=== PATIENT | female | born 1970 | race Caucasian/White ===

== ENCOUNTER 2017-03-30 19:37 | Inpatient (IN) | payer OTHER ==
[2017-03-30 20:35] VITALS: BMI 32.4
--- NOTE | 2017-03-30 21:16 | HP ---
CIWA Score - CIWA Score Nausea/Vomitin Muscle Tremors: 3 Anxiety: 3 Agitation: 3 Paroxysmal Sweats: 2 Orientation: 1-Uncertain about Date Tacttile Disturbances: 1-Very Mild Itch/Numbness Auditory Disturbances: 1-Very Mild Visual Disturbances: 0-None Headache: 0-None Present CIWA-Ar Total Score: 17 Admission [facility] - HPI Chief Complaint: WITHDRAWAL SYMPTOMS Allergies/Adverse Reactions: Allergies Allergy/AdvReac Type Severity Reaction Status Date / Time No Known Allergies Allergy Verified 03/30/17 21:14 History of Present Illness: 46 y.o. woman with a 6 year history of alcohol dependence is here seeking detox for the first time. She has attempted to detox herself from alcohol but reports she does not have a significant period of sobriety. Exam Limitations: Intoxication, Language Barrier - Ebola screening Have you traveled outside of the country in the last 21 days: No (N) Have you had contact with anyone from an Ebola affected area: No Have you been sick,other than usual withdrawal symptoms: No Do you have a fever: No - Review of Systems Constitutional: Chills, Diaphoresis, Loss of Appetite, Night Sweats, Changes in sleep, Unintentional Wgt. Loss EENT: reports: Blurred Vision, Tearing, Nose Congestion Respiratory: reports: No Symptoms reported Cardiac: reports: No Symptoms Reported GI: reports: Diarrhea, Abdominal cramping : reports: No Symptoms Reported Musculoskeletal: reports: No Symptoms Reported Integumentary: reports: No Symptoms Reported Endocrine: reports: No Symptoms Reported Hematology: reports: Anemia Psychiatric: reports: Mood/Affect Appropiate, Depressed Other Systems: Reviewed and Negative Patient History - Patient Medical History Hx Anemia: Yes Hx Asthma: No Hx Chronic Obstructive Pulmonary Disease (COPD): No Hx Cancer: No Hx Cardiac Disorders: No Hx Congestive Heart Failure: No Hx Hypertension: No Hx Hypercholesterolemia: No Hx Pacemaker: No HX Cerebrovascular Accident: No Hx Seizures: No Hx Dementia: No Hx Diabetes: No Hx Gastrointestinal Disorders: No Hx Liver Disease: No Hx Genitourinary Disorders: No Hx Sexually Transmitted Disorders: No Hx Renal Disease (ESRD): No Hx Thyroid Disease: No Hx Human Immunodeficiency Virus (HIV): No Hx Hepatitis C: No Hx Depression: Yes Hx Suicide Attempt: No Hx Bipolar Disorder: No Hx Schizophrenia: No - Patient Surgical History Past Surgical History: No - PPD History Previous Implant?: Yes Documented Results: Negative w/o proof PPD to be Administered?: Yes - Reproductive History Patient is a Female of Child Bearing Age (11 -55 yrs old): Yes Last Menstrual Period: 03/09/17 Patient : No - Smoking Cessation Smoking history: Former smoker Have you smoked in the past 12 months: No Initiated information on smoking cessation: Yes 'Breaking Loose' booklet given: 03/30/17 - Substance & Tx. History Hx Alcohol Use: Yes Hx Substance Use: No Substance Use Type: Alcohol Hx Substance Use Treatment: No (Denies any admission to rehab or detox ever ) - Substances Abused Alcohol Route: Oral Frequency: Daily Amount used: 2 pints of liquor Age of first use: 14 Date of Last Use: 03/30/17 Family Disease History - Family Disease History Family Disease History: Heart Disease: Father (ETOH DEPENDENCE ), Other: Father Admission Physical Exam [facility] - Vital Signs Vital Signs: Vital Signs - 24 hr 03/30/17 20:32 Temperature 98.3 F Pulse Rate 115 H Respiratory 18 Rate Blood Pressure 144/81 - Physical General Appearance: Yes: Alcohol on Breath, Intoxicated, Irritable, Anxious HEENTM: Yes: Hearing grossly Normal, Normal ENT Inspection, Normocephalic, Normal Voice, Pharynx Normal, Tm's normal Respiratory: Yes: Chest Non-Tender, Lungs Clear, Normal Breath Sounds, No Respiratory Distress, No Accessory Muscle Use Neck: Yes: No masses,lesions,Nodules, Trachea in good position Breast: Yes: Breast Exam Deferred Cardiology: Yes: Regular Rhythm, Tachycardia Abdominal: Yes: Flat, Soft Genitourinary: Yes: Other (No complaints reported) Back: Yes: Normal Inspection Extremities: Yes: Normal Inspection, Normal Range of Motion, Non-Tender Neurological: Yes: Alert, Motor Strength 5/5, Normal Mood/Affect, Normal Response Integumentary: Yes: Normal Color, Dry, Warm Lymphatic: Yes: Within Normal Limits - Diagnostic (1) Alcohol dependence with uncomplicated withdrawal Current Visit: Yes Status: Chronic (2) Iron deficiency anemia Current Visit: Yes Status: Chronic (3) Osteoarthritis Current Visit: Yes Status: Chronic Cleared for Admission [facility] - Detox or Rehab [facility] Level of Care: Medically Managed Detox Regimen/Protocol: Librium [facility] Breath Alcohol Content Breath Alcohol Content: 0.381 Urine Pregancy Test - Result Urine Test Results: Negative- NO Line Present Urine Drug Screen - Results Drug Screen Negative: Yes
[2017-03-30] MEDS ORDERED: P-EPHED 60MG/TRIPROLIDI 2.5MG TABLET PO PRN (21:25)
[2017-03-30] MEDS ORDERED: MAG HYDROX/AL HYDROX/SIMETH 30 ML UNIT-DOSE CUP PO PRN (21:25)
[2017-03-30] MEDS ORDERED: MAGNESIUM HYDROX 2400MG/30ML ORAL SUSPENSION 30 ML CUP PO PRN (21:25)
[2017-03-30] MEDS ORDERED: chlordiazePOXIDE HCL 25 MG CAPSULE PO ONE (21:25)
[2017-03-30] MEDS ORDERED: ACETAMINOPHEN 325 MG TABLET (FP) PO PRN (21:25)
[2017-03-30] MEDS ORDERED: MAGNESIUM CITRATE 300 ML BOTTLE PO PRN (21:25)
[2017-03-30] MEDS ORDERED: LOPERAMIDE HCL 2 MG CAPSULE PO PRN (21:25)
[2017-03-30] MEDS ORDERED: MENTHOL/PHENOL 1 EACH UD MM PRN (21:25)
[2017-03-30] MEDS ORDERED: guaiFENesin/D-METHORPHAN HB 10 ML UNIT-DOSE CUPS PO PRN (21:25)
[2017-03-30] MEDS: chlordiazePOXIDE HCL 25 MG CAPSULE PO SCH (22:25)
[2017-03-30] MEDS: THIAMINE HCL 100 MG TABLET (FP) PO SCH (22:26)
[2017-03-30 23:36] LABS: URINE APPEARANCE CLEAR; URINE BILIRUBIN NEGATIVE (NEGATIVE); URINE BLOOD 1+ (NEGATIVE); URINE COLOR YELLOW; URINE GLUCOSE (UA) NEGATIVE (NEGATIVE); URINE KETONE 2+ (NEGATIVE); URINE LEUK ESTERASE NEGATIVE (NEGATIVE); URINE NITRITE NEGATIVE (NEGATIVE)
[2017-03-30 23:37] LABS: URINE PROTEIN 2+ (NEGATIVE)
[2017-03-31 00:59] LABS: URINE MUCUS MANY; URINE RBC 1 /hpf (0-3); URINE WBC 3 /hpf (3-5)
[2017-03-31] MEDS: chlordiazePOXIDE HCL 25 MG CAPSULE PO PRN ×2 (03:42→12:54)
[2017-03-31] MEDS: chlordiazePOXIDE HCL 25 MG CAPSULE PO SCH ×4 (05:48→22:06)
--- NOTE | 2017-03-31 09:36 | PN ---
S CIWA - CIWA Score Nausea/Vomitin Muscle Tremors: 3 Anxiety: 3 Agitation: 3 Paroxysmal Sweats: 1-Minimal Palms Moist Orientation: 0-Oriented Tacttile Disturbances: 1-Very Mild Itch/Numbness Auditory Disturbances: 1-Very Mild Visual Disturbances: 1-Very Mild Sensitivity Headache: 2-Mild CIWA-Ar Total Score: 18 BHS Progress Note (SOAP) Subjective: alert,irritable,anxious,interrupted sleep,tremor Objective: 03/31/17 09:34 Vital Signs Temperature 98.2 F 03/31/17 06:22 Pulse Rate 106 H 03/31/17 06:30 Respiratory Rate 18 03/31/17 06:30 Blood Pressure 133/72 03/31/17 06:22 O2 Sat by Pulse Oximetry (%) ekg nsr,prolong qt Laboratory Last Values Urine Color Yellow 03/30/17 21:32 Urine Appearance Clear 03/30/17 21:32 Urine pH 6.0 (5.0-8.0) 03/30/17 21:32 Urine Protein 2+ (NEGATIVE) H 03/30/17 21:32 Urine Glucose (UA) Negative (NEGATIVE) 03/30/17 21:32 Urine Ketones 2+ (NEGATIVE) H 03/30/17 21:32 Urine Blood 1+ (NEGATIVE) H 03/30/17 21:32 Urine Nitrite Negative (NEGATIVE) 03/30/17 21:32 Urine Bilirubin Negative (NEGATIVE) 03/30/17 21:32 Urine Urobilinogen 2.0 mg/dL (0.2-1.0) H 03/30/17 21:32 Ur Leukocyte Esterase Negative (NEGATIVE) 03/30/17 21:32 Urine RBC 1 /hpf (0-3) 03/30/17 21:32 Urine WBC 3 /hpf (3-5) 03/30/17 21:32 Ur Epithelial Cells Moderate /hpf (FEW) 03/30/17 21:32 Urine Mucus Many 03/30/17 21:32 labs pending Assessment: 03/31/17 09:35 withdrawal symptom Plan: continue detox
--- NOTE | 2017-03-31 10:08 | CONSULT ---
[facility] Psychiatric Consult - Data Date of interview: 03/31/17 Admission source: [facility] Identifying data: This is 46 years old [place] leone[place] speaking female with no psychiatric hospitalization history intoxicated with: \Alcohol Substance Abuse History: - Smoking Cessation. Smoking history: Former smoker. Have you smoked in the past 12 months: No. Initiated information on smoking cessation: Yes. 'Breaking Loose' booklet given: 03/30/17. - Substance & Tx. History. Hx Alcohol Use: Yes. Hx Substance Use: No. Substance Use Type: Alcohol. Hx Substance Use Treatment: No (Denies any admission to rehab or detox ever ). - Substances Abused. Alcohol. Route: Oral. Frequency: Daily. Amount used: 2 pints of liquor. Age of first use: 14. Date of Last Use : 03/30/17 Medical History: Osteoarthritis, Anemia history Psychiatric History: Denies past psychiatric history Physical/Sexual Abuse/Trauma History: Denies, unclear Additional Comment: Observation. DFetox Unit Care Protocol Mental Status Exam - Mental Status Exam Alert and Oriented to: Person Cognitive Function: Fair Patient Appearance: Unkempt Mood: Sad Affect: Flat Patient Behavior: Sedated Speech Pattern: Delayed Voice Loudness: Mildly Soft/Quiet Thought Process: Circumstantial Thought Disorder: Being Controlled Hallucinations: Denies Suicidal Ideation: Denies Homicidal Ideation: Denies Insight/Judgement: Fair Sleep: Difficulty falling asleep Appetite: Weight gain Muscle strength/Tone: Mild Hypotonicity Gait/Station: Shuffling Additional Comments: Observation. 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 DFetox Unit Care Protocol
[2017-03-31] MEDS: PRENATAL VITAMINS W/ FOLIC ACID TABLET (FP) PO SCH (10:12)
[2017-03-31 10:16] LABS: ALBUMIN 3.7 g/dl (3.4-5.0); ALK PHOS 78 U/L (45-117); ANION GAP 15 (8-16); BILIRUBIN,TOTAL 0.7 mg/dL (0.2-1.0); CALCIUM 8.4 mg/dL (8.5-10.1); CO2 24 mmol/L (21-32); CREATININE 0.3 mg/dL (0.55-1.02); GLUCOSE,RANDOM 82 mg/dL (74-106); SGOT/AST 50 U/L (15-37); SGPT/ALT 45 U/L (12-78); TOT PROT 7.6 g/dl (6.4-8.2)
[2017-03-31 10:20] LABS: MCH 25.3 pg (25.7-33.7); MEAN CELL VOLUME 76.5 fl (80-96); MEAN PLT VOLUME 8.8 fl (7.5-11.1); PLATELET COUNT 187 K/MM3 (134-434); RDW 17.5 % (11.6-15.6); WHITE BLOOD COUNT 3.8 K/mm3 (4.0-10.0)
--- NOTE | 2017-03-31 12:56 | EKG ---
Test Reason : Blood Pressure : / mmHG Vent. Rate : 098 BPM Atrial Rate : 098 BPM P-R Int : 130 ms QRS Dur : 100 ms QT Int : 378 ms P-R-T Axes : 064 021 -22 degrees QTc Int : 482 ms NORMAL SINUS RHYTHM T WAVE ABNORMALITY, CONSIDER INFERIOR ISCHEMIA PROLONGED QT ABNORMAL ECG WHEN COMPARED WITH ECG OF 30-MAR-2017 22:08, NO SIGNIFICANT CHANGE WAS FOUND Confirmed by STEVE MORRISON, EMMA ([id number]) on 03/31/2017 12:55:49 PM Referred By: Confirmed By:EMMA WILSON MD
--- NOTE | 2017-03-31 12:59 | EKG ---
Test Reason : Blood Pressure : / mmHG Vent. Rate : 094 BPM Atrial Rate : 094 BPM P-R Int : 112 ms QRS Dur : 106 ms QT Int : 412 ms P-R-T Axes : 039 019 -26 degrees QTc Int : 515 ms NORMAL SINUS RHYTHM PROLONGED QT ABNORMAL ECG NO PREVIOUS ECGS AVAILABLE Confirmed by STEVE MORRISON, EMMA ([id number]) on 03/31/2017 12:58:53 PM Referred By: Confirmed By:EMMA WILSON MD
[2017-03-31] MEDS: diphenhydrAMINE HCL 50 MG CAPSULE PO PRN (22:06)
[2017-03-31] MEDS: THIAMINE HCL 100 MG TABLET (FP) PO SCH (22:06)
[2017-04-01] MEDS: chlordiazePOXIDE HCL 25 MG CAPSULE PO SCH ×3 (05:47→18:27)
--- NOTE | 2017-04-01 09:42 | PN ---
[facility] CIWA - CIWA Score Nausea/Vomitin Muscle Tremors: 3 Anxiety: 3 Agitation: 2 Paroxysmal Sweats: 1-Minimal Palms Moist Orientation: 0-Oriented Tacttile Disturbances: 1-Very Mild Itch/Numbness Auditory Disturbances: 1-Very Mild Visual Disturbances: 1-Very Mild Sensitivity Headache: 2-Mild CIWA-Ar Total Score: 17 BHS Progress Note (SOAP) Subjective: ALERT,IRRITABLE,ANXIOUS,INTERRUPTED SLEEP,TREMOR Objective: 04/01/17 09:40 Vital Signs Temperature 98.1 F 04/01/17 09:22 Pulse Rate 92 H 04/01/17 09:22 Respiratory Rate 16 04/01/17 09:22 Blood Pressure 120/74 04/01/17 09:22 O2 Sat by Pulse Oximetry (%) Laboratory Last Values WBC 3.8 K/mm3 (4.0-10.0) L 03/31/17 06:30 RBC 4.34 M/mm3 (3.60-5.2) 03/31/17 06:30 Hgb 11.0 GM/dL (10.7-15.3) 03/31/17 06:30 Hct 33.1 % (32.4-45.2) 03/31/17 06:30 MCV 76.5 fl (80-96) L 03/31/17 06:30 MCH 25.3 pg (25.7-33.7) L 03/31/17 06:30 MCHC 33.0 g/dl (32.0-36.0) 03/31/17 06:30 RDW 17.5 % (11.6-15.6) H 03/31/17 06:30 Plt Count 187 K/MM3 (134-434) 03/31/17 06:30 MPV 8.8 fl (7.5-11.1) 03/31/17 06:30 Sodium 139 mmol/L (136-145) 03/31/17 06:30 Potassium 3.3 mmol/L (3.5-5.1) L 03/31/17 06:30 Chloride 100 mmol/L (98-107) 03/31/17 06:30 Carbon Dioxide 24 mmol/L (21-32) 03/31/17 06:30 Anion Gap 15 (8-16) 03/31/17 06:30 BUN 11 mg/dL (7-18) 03/31/17 06:30 Creatinine 0.3 mg/dL (0.55-1.02) L 03/31/17 06:30 Creat Clearance w eGFR > 60 (>60) 03/31/17 06:30 Random Glucose 82 mg/dL (74-106) 03/31/17 06:30 Calcium 8.4 mg/dL (8.5-10.1) L 03/31/17 06:30 Total Bilirubin 0.7 mg/dL (0.2-1.0) 03/31/17 06:30 AST 50 U/L (15-37) H 03/31/17 06:30 ALT 45 U/L (12-78) 03/31/17 06:30 Alkaline Phosphatase 78 U/L (45-117) 03/31/17 06:30 Total Protein 7.6 g/dl (6.4-8.2) 03/31/17 06:30 Albumin 3.7 g/dl (3.4-5.0) 03/31/17 06:30 Urine Color Yellow 03/30/17 21:32 Urine Appearance Clear 03/30/17 21:32 Urine pH 6.0 (5.0-8.0) 03/30/17 21:32 Ur Specific [place] 1.025 (1.005-1.025) 03/30/17 21:32 Urine Protein 2+ (NEGATIVE) H 03/30/17 21:32 Urine Glucose (UA) Negative (NEGATIVE) 03/30/17 21:32 Urine Ketones 2+ (NEGATIVE) H 03/30/17 21:32 Urine Blood 1+ (NEGATIVE) H 03/30/17 21:32 Urine Nitrite Negative (NEGATIVE) 03/30/17 21:32 Urine Bilirubin Negative (NEGATIVE) 03/30/17 21:32 Urine Urobilinogen 2.0 mg/dL (0.2-1.0) H 03/30/17 21:32 Ur Leukocyte Esterase Negative (NEGATIVE) 03/30/17 21:32 Urine RBC 1 /hpf (0-3) 03/30/17 21:32 Urine WBC 3 /hpf (3-5) 03/30/17 21:32 Ur Epithelial Cells Moderate /hpf (FEW) 03/30/17 21:32 Urine Mucus Many 03/30/17 21:32 RPR Titer Nonreactive (NONREACTIVE) 03/31/17 06:30 Assessment: 04/01/17 09:41 WITHDRAWAL SYMPTOM Plan: CONTINUE DETOX,K IS 3.3,HYPOKALEMIA,K DUR 29 MEQ PO DAILY
[2017-04-01] MEDS: PRENATAL VITAMINS W/ FOLIC ACID TABLET (FP) PO SCH (10:14)
[2017-04-01] MEDS: POTASSIUM CHLORIDE TABS 20 MEQ TABLET.ER (FP) PO SCH (10:15)
[2017-04-01] MEDS: IBUPROFEN 400 MG TABLET (FP) PO PRN (12:43)
[2017-04-01] MEDS: chlordiazePOXIDE HCL 25 MG CAPSULE PO PRN (20:05)
[2017-04-01] MEDS: chlordiazePOXIDE 5 MG CAPSULE PO SCH (22:09)
[2017-04-01] MEDS: THIAMINE HCL 100 MG TABLET (FP) PO SCH (22:09)
[2017-04-01] MEDS: diphenhydrAMINE HCL 50 MG CAPSULE PO PRN (22:11)
[2017-04-02] MEDS: chlordiazePOXIDE HCL 25 MG CAPSULE PO PRN (02:21)
[2017-04-02] MEDS: diphenhydrAMINE HCL 50 MG CAPSULE PO PRN ×2 (02:21→22:04)
[2017-04-02] MEDS: chlordiazePOXIDE 5 MG CAPSULE PO SCH ×3 (05:18→17:19)
[2017-04-02] MEDS: PRENATAL VITAMINS W/ FOLIC ACID TABLET (FP) PO SCH (10:16)
[2017-04-02] MEDS: POTASSIUM CHLORIDE TABS 20 MEQ TABLET.ER (FP) PO SCH (10:16)
--- NOTE | 2017-04-02 10:21 | PN ---
S Progress Note (SOAP) Subjective: ALERT,IRRITABLE,INTERRUPTED SLEEP Objective: 04/02/17 10:20 Vital Signs Temperature 97.3 F L 04/02/17 06:18 Pulse Rate 73 04/02/17 06:18 Respiratory Rate 18 04/02/17 06:18 Blood Pressure 102/63 04/02/17 06:18 O2 Sat by Pulse Oximetry (%) Assessment: 04/02/17 10:20 WITHDRAWAL SYMPTOM Plan: CONTINUE DETOX,DISCHARGE IN AM
[2017-04-02] MEDS: IBUPROFEN 400 MG TABLET (FP) PO PRN (14:44)
[2017-04-02] MEDS: chlordiazePOXIDE HCL 10 MG CAPSULE PO SCH (22:04)
[2017-04-02] MEDS: THIAMINE HCL 100 MG TABLET (FP) PO SCH (22:13)
[2017-04-03] MEDS: diphenhydrAMINE HCL 50 MG CAPSULE PO PRN (01:28)
[2017-04-03] MEDS: chlordiazePOXIDE HCL 10 MG CAPSULE PO SCH (05:58)
[2017-04-03] MEDS: IBUPROFEN 400 MG TABLET (FP) PO PRN (06:01)
[2017-04-03 06:04] VITALS: BP 103/67; PULSE 83; TEMP 97.7
--- NOTE | 2017-04-03 08:13 | PN ---
S Progress Note (SOAP) Subjective: ALERT,NO COMPLAINT Objective: 04/03/17 08:08 Vital Signs Temperature 97.7 F 04/03/17 06:03 Pulse Rate 83 04/03/17 06:03 Respiratory Rate 18 04/03/17 06:03 Blood Pressure 103/67 04/03/17 06:03 O2 Sat by Pulse Oximetry (%) Assessment: 04/03/17 08:08 DETOX COMPLETE,NO WITHDRAWAL SYMPTOM Plan: DISCHARGE TODAY,FOLLOW UP WITH AFTER CARE PROGRAM ARRANGEMENT
--- NOTE | 2017-04-03 08:19 | DS ---
[facility] Detox Discharge Summary Admission Date: 03/30/17 Discharge Date: 04/03/17 - History Present History: Alcohol Dependence Additional Comments: FOLLOW UP WITH AFTER CARE PROGRAM ARRANGEMENT Pertinent Past History: IRON DEFICIENCY ANEMIA OSTEOARHRITIS - Physical Exam Results Vital Signs: Vital Signs Temperature 97.7 F 04/03/17 06:03 Pulse Rate 83 04/03/17 06:03 Respiratory Rate 18 04/03/17 06:03 Blood Pressure 103/67 04/03/17 06:03 O2 Sat by Pulse Oximetry (%) Pertinent Admission Physical Exam Findings: WITHDRAWAL SYMPTOM - Treatment Hospital Course: Detox Protocol Followed, Detoxed Safely, Responded well, Discharged Condition Good Patient has Accepted a Rehab Referral to: DECLINED - Diagnosis (1) Hypokalemia Current Visit: Yes Status: Acute (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
[2017-04-03] MEDS: PRENATAL VITAMINS W/ FOLIC ACID TABLET (FP) PO SCH (09:29)
[2017-04-03] MEDS: POTASSIUM CHLORIDE TABS 20 MEQ TABLET.ER (FP) PO SCH (09:29)
[2017-04-03] MEDS ORDERED: FERROUS SO4 325 MG TABLET (FP) PO SCH (10:00)
== END 2017-04-03 09:35 | disposition home or self-care (01) | DRG 775 ==
LOC: YASAS 19:37 → Y6N 21:25
PROVIDERS: ADMIT Internal Medicine; ATTEND Surgery
PROC: HZ2ZZZZ Detoxification Services for Substance Abuse Treatment (ICD-10-PCS; principal; 2017-03-30)
DX: F10.230 Alcohol dependence with withdrawal, uncomplicated (principal); F10.282 Alcohol dependence with alcohol-induced sleep disorder; F10.24 Alcohol dependence with alcohol-induced mood disorder; D50.9 Iron deficiency anemia, unspecified; E87.6 Hypokalemia; R00.0 Tachycardia, unspecified; M19.90 Unspecified osteoarthritis, unspecified site; Z87.891 Personal history of nicotine dependence
CPT/HCPCS: 36415; 80053; 81003; 81015; 85027; 86593; 93005; 93010

== ENCOUNTER 2017-10-21 18:49 | Inpatient (IN) | payer OTHER ==
[2017-10-21 20:53] VITALS: BMI 30.7
--- NOTE | 2017-10-21 23:02 | HP ---
CIWA Score - CIWA Score Nausea/Vomitin Muscle Tremors: 4-Moderate,w/Arms Extend Anxiety: 4-Mod. Anxious/Guarded Agitation: 2 Paroxysmal Sweats: 3 Orientation: 1-Uncertain about Date Tacttile Disturbances: 0-None Auditory Disturbances: 0-None Visual Disturbances: 0-None Headache: 3-Moderate CIWA-Ar Total Score: 20 Admission ROS S - HPI Chief Complaint: Alcohol withdrawal symptoms Allergies/Adverse Reactions: Allergies Allergy/AdvReac Type Severity Reaction Status Date / Time No Known Allergies Allergy Verified 03/30/17 21:14 History of Present Illness: 47 years old female with a long history of alcohol withdrawal symptoms is seeking admission to detox. Patient has been in previous detox and reports insignificant period of sobriety. She has past medical history of anemia, gastritis and hepatitis C (unsure, wants to be retested). Patient denies suicide attempt and suicidal ideation at this time. Exam Limitations: No Limitations - Ebola screening Have you traveled outside of the country in the last 21 days: No Have you had contact with anyone from an Ebola affected area: No Have you been sick,other than usual withdrawal symptoms: No Do you have a fever: No - Review of Systems Constitutional: Chills, Loss of Appetite, Malaise, Night Sweats, Changes in sleep EENT: reports: Nose Congestion, Sinus Pressure Respiratory: reports: No Symptoms reported Cardiac: reports: No Symptoms Reported GI: reports: Diarrhea (diarrhea x 4), Poor Appetite, Poor Fluid Intake, Vomiting (vomiting x 3), Abdominal cramping : reports: No Symptoms Reported Musculoskeletal: reports: Back Pain, Muscle Pain, Muscle Weakness Integumentary: reports: Flushing Neuro: reports: Headache, Tingling, Tremors Endocrine: reports: No Symptoms Reported Hematology: reports: Anemia Psychiatric: reports: Orientated x3, Anxious Other Systems: Reviewed and Negative Patient History - Patient Medical History Hx Anemia: Yes Hx Asthma: No Hx Chronic Obstructive Pulmonary Disease (COPD): No Hx Cancer: No Hx Cardiac Disorders: No Hx Congestive Heart Failure: No Hx Hypertension: No Hx Hypercholesterolemia: No Hx Pacemaker: No HX Cerebrovascular Accident: No Hx Seizures: No Hx Dementia: No Hx Diabetes: No Hx Gastrointestinal Disorders: Yes (Gastritis) Hx Liver Disease: No Hx Genitourinary Disorders: No Hx Sexually Transmitted Disorders: No Hx Renal Disease (ESRD): No Hx Thyroid Disease: No Hx Human Immunodeficiency Virus (HIV): No Hx Hepatitis C: Yes Hx Depression: No Hx Suicide Attempt: No (Denies suicidal ideation at this time) Hx Bipolar Disorder: No Hx Schizophrenia: No - Patient Surgical History Past Surgical History: No Hx Neurologic Surgery: No Hx Cataract Extraction: No Hx Cardiac Surgery: No Hx Lung Surgery: No Hx Breast Surgery: No Hx Breast Biopsy: No Hx Abdominal Surgery: No Hx Appendectomy: No Hx Cholecystectomy: No Hx Genitourinary Surgery: No Hx Section: No Hx Orthopedic Surgery: No Hx Hysterectomy: No Anesthesia Reaction: No - PPD History Previous Implant?: Yes Documented Results: Negative w/proof Date: 04/01/17 Results: 0mm PPD to be Administered?: No - Reproductive History Patient is a Female of Child Bearing Age (11 -55 yrs old): Yes Last Menstrual Period: 09/11/17 Patient : No - Smoking Cessation Smoking history: Former smoker Have you smoked in the past 12 months: No Hx Chewing Tobacco Use: No Initiated information on smoking cessation: No - Substance & Tx. History Hx Alcohol Use: Yes Hx Substance Use: No Hx Substance Use Treatment: Yes ([facility]) - Substances Abused Alcohol Route: Oral Frequency: Daily Amount used: Liz 1 bottle Age of first use: 16 Date of Last Use: 10/21/17 Family Disease History - Family Disease History Family Disease History: Heart Disease: Father (ETOH DEPENDENCE ), Other: Father Admission Physical Exam BHS - Vital Signs Vital Signs: Vital Signs - 24 hr 10/21/17 20:42 Temperature 96.3 F L Pulse Rate 115 H Respiratory 18 Rate Blood Pressure 111/73 - Physical General Appearance: Yes: Moderate Distress, Tremorous, Irritable, Sweating, Anxious HEENTM: Yes: Normal ENT Inspection, Normal Voice, GARY Respiratory: Yes: Lungs Clear, Normal Breath Sounds, No Respiratory Distress Neck: Yes: Supple Breast: Yes: Breast Exam Deferred Cardiology: Yes: Regular Rhythm, Regular Rate, S1, S2 Abdominal: Yes: Normal Bowel Sounds, Soft Genitourinary: Yes: Within Normal Limits Back: Yes: Normal Inspection Musculoskeletal: Yes: Back pain, Muscle Pain, Muscle weakness Extremities: Yes: Tremors Neurological: Yes: Alert, Normal Mood/Affect Integumentary: Yes: Dry Lymphatic: Yes: Within Normal Limits - Diagnostic (1) Hep C w/o coma, chronic Current Visit: Yes Status: Chronic (2) Depression Current Visit: Yes Status: Chronic (3) Gastritis Current Visit: Yes Status: Chronic (4) Alcohol dependence with uncomplicated withdrawal Current Visit: Yes Status: Chronic (5) Iron deficiency anemia Current Visit: Yes Status: Chronic (6) Osteoarthritis Current Visit: Yes Status: Chronic Cleared for Admission [facility] - Detox or Rehab [facility] Level of Care: Medically Managed Detox Regimen/Protocol: Librium S Breath Alcohol Content Breath Alcohol Content: 0.280 Urine Pregancy Test - Result Urine Test Results: Negative- NO Line Present Urine Drug Screen - Results Drug Screen Negative: No Urine Drug Screen Results: BZO-Benzodiazepines, TCA-Tricyclic Antidepress
[2017-10-21] MEDS ORDERED: NICOTINE POLACRILEX 2 MG GUM BC PRN (23:21)
[2017-10-21] MEDS ORDERED: MAGNESIUM HYDROX 2400MG/30ML ORAL SUSPENSION 30 ML CUP PO PRN (23:21)
[2017-10-21] MEDS ORDERED: MENTHOL/PHENOL 1 EACH UD MM PRN (23:21)
[2017-10-21] MEDS ORDERED: guaiFENesin/D-METHORPHAN HB 10 ML UNIT-DOSE CUPS PO PRN (23:21)
[2017-10-21] MEDS ORDERED: LOPERAMIDE HCL 2 MG CAPSULE PO PRN (23:21)
[2017-10-21] MEDS ORDERED: ACETAMINOPHEN 325 MG TABLET (FP) PO PRN (23:21)
[2017-10-21] MEDS ORDERED: MAG HYDROX/AL HYDROX/SIMETH 30 ML UNIT-DOSE CUP PO PRN (23:21)
[2017-10-21] MEDS ORDERED: MAGNESIUM CITRATE 300 ML BOTTLE PO PRN (23:21)
[2017-10-21] MEDS ORDERED: chlordiazePOXIDE HCL 25 MG CAPSULE PO ONE (23:21)
[2017-10-21] MEDS ORDERED: P-EPHED 60MG/TRIPROLIDI 2.5MG TABLET PO PRN (23:21)
[2017-10-21] MEDS ORDERED: chlordiazePOXIDE HCL 25 MG CAPSULE PO PRN (23:21)
[2017-10-21] MEDS ORDERED: ONDANSETRON 8 MG TABLET (FP) PO PRN (23:25)
[2017-10-21] MEDS: chlordiazePOXIDE HCL 25 MG CAPSULE PO SCH (23:50)
[2017-10-21] MEDS: IBUPROFEN 400 MG TABLET (FP) PO PRN (23:52)
[2017-10-22] MEDS: chlordiazePOXIDE HCL 25 MG CAPSULE PO SCH ×7 (00:09→22:10)
[2017-10-22] MEDS ORDERED: chlordiazePOXIDE HCL 25 MG CAPSULE PO PRN (00:12)
[2017-10-22] MEDS ORDERED: hydrOXYzine PAMOATE 50 MG CAPSULE (FP) PO ONE (01:15)
[2017-10-22] MEDS ORDERED: chlordiazePOXIDE HCL 25 MG CAPSULE PO SCH (05:00)
[2017-10-22 10:21] LABS: HEMATOCRIT 40.4 % (32.4-45.2); HEMOGLOBIN 13.3 GM/dL (10.7-15.3); MCH 27.7 pg (25.7-33.7); MEAN PLT VOLUME 9.3 fl (7.5-11.1); PLATELET COUNT 150 K/MM3 (134-434); RBC 4.81 M/mm3 (3.60-5.2); RDW 14.8 % (11.6-15.6); WHITE BLOOD COUNT 6.5 K/mm3 (4.0-10.0)
[2017-10-22] MEDS: NICOTINE 14 MG/24 HOURS TOPICAL PATCH TD SCH (10:34)
[2017-10-22] MEDS: PANTOPRAZOLE 40 MG TABLET (FP) PO SCH (10:34)
[2017-10-22] MEDS: PRENATAL VITAMINS W/ FOLIC ACID TABLET (FP) PO SCH (10:34)
[2017-10-22] MEDS: FERROUS SO4 325 MG TABLET (FP) PO SCH (10:34)
[2017-10-22 10:35] LABS: CHLORIDE 105 mmol/L (98-107); POTASSIUM 3.2 mmol/L (3.5-5.1); SODIUM 141 mmol/L (136-145)
[2017-10-22 11:08] LABS: ALBUMIN 3.7 g/dl (3.4-5.0); ALK PHOS 68 U/L (45-117); ANION GAP 15 (8-16); BILIRUBIN,TOTAL 0.4 mg/dL (0.2-1.0); BLOOD UREA NITROGEN 12 mg/dL (7-18); CALCIUM 8.4 mg/dL (8.5-10.1); CO2 21 mmol/L (21-32); CREATININE 0.5 mg/dL (0.55-1.02); GLUCOSE,RANDOM 129 mg/dL (74-106); SGOT/AST 29 U/L (15-37); SGPT/ALT 31 U/L (12-78); TOT PROT 7.3 g/dl (6.4-8.2)
--- NOTE | 2017-10-22 11:11 | PN ---
S CIWA - CIWA Score Nausea/Vomitin-No Nausea/No Vomiting Muscle Tremors: 4-Moderate,w/Arms Extend Anxiety: 3 Agitation: 3 Paroxysmal Sweats: 3 Orientation: 0-Oriented Tacttile Disturbances: 0-None Auditory Disturbances: 0-None Visual Disturbances: 0-None Headache: 1-Very Mild CIWA-Ar Total Score: 14 BHS Progress Note (SOAP) Subjective: sweats shakes interrupted sleep body aches Objective: 10/22/17 11:10 Vital Signs Temperature 100.4 F H 10/22/17 07:08 Pulse Rate 115 H 10/22/17 07:08 Respiratory Rate 20 10/22/17 07:08 Blood Pressure 137/87 10/22/17 07:08 O2 Sat by Pulse Oximetry (%) Laboratory Tests 10/22/17 07:40 WBC 6.5 D RBC 4.81 Hgb 13.3 D Hct 40.4 D MCV 84.0 MCH 27.7 MCHC 33.0 RDW 14.8 D Plt Count 150 MPV 9.3 labs pending [id number] ambulating no acute distress Assessment: 10/22/17 11:10 withdrawal sx Plan: continue detox increase fluids
[2017-10-22] MEDS ORDERED: PNEUMOCOCCAL 23 VACCINE 0.5 ML VIAL IM ONE (12:00)
[2017-10-22] MEDS ORDERED: FLU VACCINE QUAD 60 MCG/0.5 ML (MDV 17-18) IM ONE (12:00)
[2017-10-22] MEDS ORDERED: PNEUMOC 13-VAL CONJ-DIP CRM/PF 0.5 ML DISP.SYRIN IM ONE (12:00)
[2017-10-22] MEDS: IBUPROFEN 400 MG TABLET (FP) PO PRN (12:49)
--- NOTE | 2017-10-22 13:29 | CONSULT ---
[facility] Psychiatric Consult - Data Date of interview: 10/22/17 Admission source: [facility] Identifying data: Pt. is a 47 year old [place] woman, mother of three , employed and lives with family. This is one of multiple admissions for patient. Pt. admitted to for alcohol dependence. Substance Abuse History: Following information confirmed with Ms. Salazar: Smoking Cessation. Smoking history: Former smoker. Have you smoked in the past 12 months: No. Hx Chewing Tobacco Use: No. Initiated information on smoking cessation: No. - Substance & Tx. History. Hx Alcohol Use: Yes. Hx Substance Use: No. Hx Substance Use Treatment: Yes ([facility]). - Substances Abused. Alcohol. Route: Oral. Frequency: Daily. Amount used: Liz 1 bottle. Age of first use: 16. Date of Last Use: 10/21/17 Psychiatric History: Pt. denies h/o psychiatric hospitalizations, suicide attempt, and outpatient care. Physical/Sexual Abuse/Trauma History: Denies. Mental Status Exam - Mental Status Exam Alert and Oriented to: Time, Place, Person Cognitive Function: Good Patient Appearance: Well Groomed Mood: Euthymic Affect: Mood Congruent Patient Behavior: Appropriate, Cooperative Speech Pattern: Clear, Appropriate Voice Loudness: Normal Thought Process: Goal Oriented Thought Disorder: Not Present Hallucinations: Denies Suicidal Ideation: Denies Homicidal Ideation: Denies Insight/Judgement: Poor Sleep: Poorly Appetite: Fair Muscle strength/Tone: Normal Gait/Station: Normal Psychiatric Findings - Problem List ([place] 1, 2,3) (1) Insomnia Current Visit: Yes Status: Acute (2) Alcohol dependence with uncomplicated withdrawal Current Visit: Yes Status: Acute (3) Substance induced mood disorder Current Visit: No Status: Suspected - Initial Treatment Plan Initial Treatment Plan: Psychoeducation provided. Detoxification in progress. Benadryl 25mg qhs PRN ordered for insomnia. Benefits and side effects discussed. Verbal consent given.
[2017-10-22] MEDS ORDERED: ONDANSETRON *ODT* 4 MG TABLET SL PRN (15:45)
[2017-10-22 18:27] LABS: URINE APPEARANCE TURBID; URINE BILIRUBIN NEGATIVE (NEGATIVE); URINE BLOOD 3+ (NEGATIVE); URINE COLOR AMBER; URINE GLUCOSE (UA) NEGATIVE (NEGATIVE); URINE KETONE NEGATIVE (NEGATIVE); URINE LEUK ESTERASE NEGATIVE (NEGATIVE); URINE NITRITE NEGATIVE (NEGATIVE); URINE UROBILINOGEN NEGATIVE mg/dL (0.2-1.0)
[2017-10-22 19:55] LABS: URINE PROTEIN 2+ (NEGATIVE)
[2017-10-22 20:23] LABS: URINE MUCUS MANY
[2017-10-22] MEDS: THIAMINE HCL 100 MG TABLET (FP) PO SCH (22:10)
[2017-10-22] MEDS: diphenhydrAMINE HCL 25 MG CAPSULE (FP) PO PRN (22:10)
[2017-10-23] MEDS ORDERED: chlordiazePOXIDE 5 MG CAPSULE PO SCH (05:00)
[2017-10-23] MEDS: chlordiazePOXIDE HCL 25 MG CAPSULE PO SCH ×2 (05:43→11:05)
[2017-10-23] MEDS: PANTOPRAZOLE 40 MG TABLET (FP) PO SCH (11:05)
[2017-10-23] MEDS: FERROUS SO4 325 MG TABLET (FP) PO SCH (11:05)
[2017-10-23] MEDS: PRENATAL VITAMINS W/ FOLIC ACID TABLET (FP) PO SCH (11:05)
[2017-10-23] MEDS: NICOTINE 14 MG/24 HOURS TOPICAL PATCH TD SCH (11:19)
--- NOTE | 2017-10-23 12:33 | PN ---
S CIWA - CIWA Score Nausea/Vomitin-Mild Nausea/No Vomiting Muscle Tremors: 2 Anxiety: 3 Agitation: 2 Paroxysmal Sweats: 1-Minimal Palms Moist Orientation: 0-Oriented Tacttile Disturbances: 0-None Auditory Disturbances: 0-None Visual Disturbances: 0-None Headache: 0-None Present CIWA-Ar Total Score: 9 BHS Progress Note (SOAP) Subjective: Tremors anxious Objective: 10/23/17 12:30 A & O x 3 calm Vital Signs Temperature 98.2 F 10/23/17 10:00 Pulse Rate 91 H 10/23/17 10:00 Respiratory Rate 18 10/23/17 10:00 Blood Pressure 126/77 10/23/17 10:00 O2 Sat by Pulse Oximetry (%) Laboratory Last Values WBC 6.5 K/mm3 (4.0-10.0) D 10/22/17 07:40 RBC 4.81 M/mm3 (3.60-5.2) 10/22/17 07:40 Hgb 13.3 GM/dL (10.7-15.3) D 10/22/17 07:40 Hct 40.4 % (32.4-45.2) D 10/22/17 07:40 MCV 84.0 fl (80-96) 10/22/17 07:40 MCH 27.7 pg (25.7-33.7) 10/22/17 07:40 MCHC 33.0 g/dl (32.0-36.0) 10/22/17 07:40 RDW 14.8 % (11.6-15.6) D 10/22/17 07:40 Plt Count 150 K/MM3 (134-434) 10/22/17 07:40 MPV 9.3 fl (7.5-11.1) 10/22/17 07:40 Sodium 141 mmol/L (136-145) 10/22/17 07:40 Potassium 3.2 mmol/L (3.5-5.1) L 10/22/17 07:40 Chloride 105 mmol/L (98-107) 10/22/17 07:40 Carbon Dioxide 21 mmol/L (21-32) 10/22/17 07:40 Anion Gap 15 (8-16) 10/22/17 07:40 BUN 12 mg/dL (7-18) 10/22/17 07:40 Creatinine 0.5 mg/dL (0.55-1.02) L 10/22/17 07:40 Creat Clearance w eGFR > 60 (>60) 10/22/17 07:40 Random Glucose 129 mg/dL (74-106) H 10/22/17 07:40 Calcium 8.4 mg/dL (8.5-10.1) L 10/22/17 07:40 Total Bilirubin 0.4 mg/dL (0.2-1.0) D 10/22/17 07:40 AST 29 U/L (15-37) 10/22/17 07:40 ALT 31 U/L (12-78) 10/22/17 07:40 Alkaline Phosphatase 68 U/L (45-117) 10/22/17 07:40 Total Protein 7.3 g/dl (6.4-8.2) 10/22/17 07:40 Albumin 3.7 g/dl (3.4-5.0) 10/22/17 07:40 Urine Color Zari 10/22/17 17:30 Urine Appearance Turbid 10/22/17 17:30 Urine pH 6.0 (5.0-8.0) 10/22/17 17:30 Ur Specific [place] 1.014 (1.001-1.035) 10/22/17 17:30 Urine Protein 2+ (NEGATIVE) H 10/22/17 17:30 Urine Glucose (UA) Negative (NEGATIVE) 10/22/17 17:30 Urine Ketones Negative (NEGATIVE) 10/22/17 17:30 Urine Blood 3+ (NEGATIVE) H 10/22/17 17:30 Urine Nitrite Negative (NEGATIVE) 10/22/17 17:30 Urine Bilirubin Negative (NEGATIVE) 10/22/17 17:30 Urine Urobilinogen Negative mg/dL (0.2-1.0) 10/22/17 17:30 Ur Leukocyte Esterase Negative (NEGATIVE) 10/22/17 17:30 Urine WBC (Auto) None /hpf (3-5) 10/22/17 17:30 Urine RBC (Auto) 81 /hpf (0-3) 10/22/17 17:30 Urine Mucus Many 10/22/17 17:30 RPR Titer Nonreactive (NONREACTIVE) 10/22/17 07:40 labs noted Assessment: 10/23/17 12:31 withdrawal sx Plan: continue detox increase hydration Potassium supplement For d/c tomorrow
[2017-10-23] MEDS ORDERED: POTASSIUM CHLORIDE ORAL LIQUID 20 MEQ/15 ML PO SCH ×2 (12:45→12:49)
--- NOTE | 2017-10-23 13:07 | PN ---
[facility] Progress Note Note: patient requesting early discharge tomorrow to allow her go to work on wednesday. Patient started on potassium supplement s/p low levels To evaluate ekg in the a.m prior to d/c
[2017-10-23] MEDS: POTASSIUM CHLORIDE ORAL LIQUID 20 MEQ/15 ML PO SCH ×2 (14:22→22:44)
[2017-10-23] MEDS: chlordiazePOXIDE 5 MG CAPSULE PO SCH ×2 (17:54→22:47)
[2017-10-23] MEDS: THIAMINE HCL 100 MG TABLET (FP) PO SCH (22:43)
[2017-10-23] MEDS: IBUPROFEN 400 MG TABLET (FP) PO PRN (22:44)
[2017-10-24] MEDS: diphenhydrAMINE HCL 25 MG CAPSULE (FP) PO PRN (00:54)
[2017-10-24] MEDS ORDERED: chlordiazePOXIDE HCL 10 MG CAPSULE PO SCH (05:00)
[2017-10-24] MEDS ORDERED: chlordiazePOXIDE 5 MG CAPSULE PO SCH (05:00)
[2017-10-24] MEDS: chlordiazePOXIDE HCL 10 MG CAPSULE PO SCH ×2 (05:49→10:53)
[2017-10-24 07:01] VITALS: TEMP 98.1
--- NOTE | 2017-10-24 10:16 | DS ---
[facility] Detox Discharge Summary Admission Date: 10/21/17 Discharge Date: 10/24/17 - History Present History: Alcohol Dependence Additional Comments: patient aware of positive ppd and need chest x ray, also positive hepatitis c patient agrees to go to her primary physician for chest x ray set of lab printed and explained patient agrees to begin hepatitis c treatment with her primary care physician - Physical Exam Results Vital Signs: Vital Signs Temperature 98.1 F 10/24/17 06:00 Pulse Rate 73 10/24/17 06:00 Respiratory Rate 18 10/24/17 06:00 Blood Pressure 109/68 10/24/17 06:00 O2 Sat by Pulse Oximetry (%) Pertinent Admission Physical Exam Findings: withdrawal sx Vital Signs Temperature 98.1 F 10/24/17 06:00 Pulse Rate 73 10/24/17 06:00 Respiratory Rate 18 10/24/17 06:00 Blood Pressure 109/68 10/24/17 06:00 O2 Sat by Pulse Oximetry (%) Laboratory Last Values WBC 6.5 K/mm3 (4.0-10.0) D 10/22/17 07:40 RBC 4.81 M/mm3 (3.60-5.2) 10/22/17 07:40 Hgb 13.3 GM/dL (10.7-15.3) D 10/22/17 07:40 Hct 40.4 % (32.4-45.2) D 10/22/17 07:40 MCV 84.0 fl (80-96) 10/22/17 07:40 MCH 27.7 pg (25.7-33.7) 10/22/17 07:40 MCHC 33.0 g/dl (32.0-36.0) 10/22/17 07:40 RDW 14.8 % (11.6-15.6) D 10/22/17 07:40 Plt Count 150 K/MM3 (134-434) 10/22/17 07:40 MPV 9.3 fl (7.5-11.1) 10/22/17 07:40 Sodium 141 mmol/L (136-145) 10/22/17 07:40 Potassium 3.2 mmol/L (3.5-5.1) L 10/22/17 07:40 Chloride 105 mmol/L (98-107) 10/22/17 07:40 Carbon Dioxide 21 mmol/L (21-32) 10/22/17 07:40 Anion Gap 15 (8-16) 10/22/17 07:40 BUN 12 mg/dL (7-18) 10/22/17 07:40 Creatinine 0.5 mg/dL (0.55-1.02) L 10/22/17 07:40 Creat Clearance w eGFR > 60 (>60) 10/22/17 07:40 Random Glucose 129 mg/dL (74-106) H 10/22/17 07:40 Calcium 8.4 mg/dL (8.5-10.1) L 10/22/17 07:40 Total Bilirubin 0.4 mg/dL (0.2-1.0) D 10/22/17 07:40 AST 29 U/L (15-37) 10/22/17 07:40 ALT 31 U/L (12-78) 10/22/17 07:40 Alkaline Phosphatase 68 U/L (45-117) 10/22/17 07:40 Total Protein 7.3 g/dl (6.4-8.2) 10/22/17 07:40 Albumin 3.7 g/dl (3.4-5.0) 10/22/17 07:40 Urine Color Zari 10/22/17 17:30 Urine Appearance Turbid 10/22/17 17:30 Urine pH 6.0 (5.0-8.0) 10/22/17 17:30 Ur Specific [place] 1.014 (1.001-1.035) 10/22/17 17:30 Urine Protein 2+ (NEGATIVE) H 10/22/17 17:30 Urine Glucose (UA) Negative (NEGATIVE) 10/22/17 17:30 Urine Ketones Negative (NEGATIVE) 10/22/17 17:30 Urine Blood 3+ (NEGATIVE) H 10/22/17 17:30 Urine Nitrite Negative (NEGATIVE) 10/22/17 17:30 Urine Bilirubin Negative (NEGATIVE) 10/22/17 17:30 Urine Urobilinogen Negative mg/dL (0.2-1.0) 10/22/17 17:30 Ur Leukocyte Esterase Negative (NEGATIVE) 10/22/17 17:30 Urine WBC (Auto) None /hpf (3-5) 10/22/17 17:30 Urine RBC (Auto) 81 /hpf (0-3) 10/22/17 17:30 Urine Mucus Many 10/22/17 17:30 RPR Titer Nonreactive (NONREACTIVE) 10/22/17 07:40 lab noted - Treatment Hospital Course: Detox Protocol Followed, Detoxed Safely, Responded well, Discharged Condition Good, Rehab Referral Accepted Patient has Accepted a Rehab Referral to: [facility] - Medication Discharge Medications: Ambulatory Orders Ondansetron HCl [Zofran] 8 mg PO Q8H PRN 10/21/17 Ferrous Sulfate [Feosol] 325 mg PO DAILY #30 tab 10/24/17 Pantoprazole Sodium 40 mg PO DAILY #14 tablet. 10/24/17 - Diagnosis (1) Alcohol dependence with uncomplicated withdrawal Current Visit: Yes Status: Acute (2) Hep C w/o coma, chronic Current Visit: Yes Status: Chronic (3) Positive PPD Current Visit: Yes Status: Chronic - AMA Did Patient Leave Against Medical Advice: No
[2017-10-24 10:42] VITALS: BP 111/64; PULSE 82
[2017-10-24] MEDS: POTASSIUM CHLORIDE ORAL LIQUID 20 MEQ/15 ML PO SCH (10:51)
[2017-10-24] MEDS: PANTOPRAZOLE 40 MG TABLET (FP) PO SCH (10:51)
[2017-10-24] MEDS: PRENATAL VITAMINS W/ FOLIC ACID TABLET (FP) PO SCH (10:51)
[2017-10-24] MEDS: FERROUS SO4 325 MG TABLET (FP) PO SCH (10:51)
[2017-10-24] MEDS: NICOTINE 14 MG/24 HOURS TOPICAL PATCH TD SCH (10:51)
[2017-10-24] MEDS: IBUPROFEN 400 MG TABLET (FP) PO PRN (11:15)
[2017-10-25] MEDS ORDERED: chlordiazePOXIDE HCL 10 MG CAPSULE PO SCH (05:00)
--- NOTE | 2017-10-26 13:37 | EKG ---
Test Reason : Blood Pressure : / mmHG Vent. Rate : 093 BPM Atrial Rate : 093 BPM P-R Int : 108 ms QRS Dur : 098 ms QT Int : 398 ms P-R-T Axes : 021 014 -17 degrees QTc Int : 494 ms SINUS RHYTHM WITH SHORT CA PROLONGED QT ABNORMAL ECG WHEN COMPARED WITH ECG OF 22-OCT-2017 00:56, NO SIGNIFICANT CHANGE WAS FOUND Confirmed by MD Spence Daniel ([id number]) on 10/26/2017 1:37:28 PM Referred By: Confirmed By:Torrey Spence MD
--- NOTE | 2017-10-26 13:38 | EKG ---
Test Reason : Blood Pressure : / mmHG Vent. Rate : 109 BPM Atrial Rate : 109 BPM P-R Int : 130 ms QRS Dur : 092 ms QT Int : 354 ms P-R-T Axes : 027 026 -24 degrees QTc Int : 476 ms SINUS TACHYCARDIA T WAVE ABNORMALITY, CONSIDER INFERIOR ISCHEMIA ABNORMAL ECG WHEN COMPARED WITH ECG OF 31-MAR-2017 08:30, NO SIGNIFICANT CHANGE WAS FOUND Confirmed by MD Jordy, Torrey ([id number]) on 10/26/2017 1:37:38 PM Referred By: Confirmed By:Torrey Spence MD
== END 2017-10-24 11:15 | disposition home or self-care (01) | DRG 775 ==
LOC: YASAS 18:49 → Y6N 22:05
PROVIDERS: ADMIT Internal Medicine; ATTEND Internal Medicine
PROC: HZ2ZZZZ Detoxification Services for Substance Abuse Treatment (ICD-10-PCS; principal; 2017-10-21)
DX: F10.230 Alcohol dependence with withdrawal, uncomplicated (principal); F19.24 Other psychoactive substance dependence with psychoactive substance-induced mood disorder; G47.00 Insomnia, unspecified; R76.11 Nonspecific reaction to tuberculin skin test without active tuberculosis; B18.2 Chronic viral hepatitis C
CPT/HCPCS: 36415; 80053; 81003; 81015; 85027; 86593; 90688; 90732; 93005; 93010; G0009

== ENCOUNTER 2018-07-15 14:39 | Emergency (ER) | payer OTHER ==
--- NOTE | 2018-07-15 15:19 | PDOC ---
Rapid Medical Evaluation Chief Complaint: Pain, Acute Time Seen by Provider: 07/15/18 15:14 Medical Evaluation: Allergies Allergy/AdvReac Type Severity Reaction Status Date / Time No Known Allergies Allergy Verified 02/24/18 20:54 07/15/18 15:16 abdominal pain with nausea/ vomiting x 4 days. subjective fever. denies diarrhea, URINary symptoms. reports drinking alcohol today Pe: patient alert ox3. A: abdominal pain P: labs, ua zofran patient to ER for further management of care. Discharge Disposition - Diagnosis Alcohol abuse Vomiting Qualifiers: Vomiting type: unspecified Vomiting Intractability: non-intractable Nausea presence: with nausea Qualified Code(s): R11.2 - Nausea with vomiting, unspecified - Referrals - Patient Instructions - Post Discharge Activity
[2018-07-15 15:21] VITALS: BMI 29.2
[2018-07-15] MEDS ORDERED: ONDANSETRON 4 MG/2 ML VIAL IVPB ONE (15:21)
[2018-07-15] MEDS ORDERED: SODIUM CHLORIDE 0.9% 500 ML INFUS.BAG IV ONE (15:30)
[2018-07-15 15:52] LABS: URINE APPEARANCE CLEAR; URINE BILIRUBIN NEGATIVE (<2.0 mg/dL); URINE COLOR YELLOW; URINE GLUCOSE (UA) NEGATIVE (NEGATIVE); URINE KETONE 2+ (NEGATIVE); URINE LEUK ESTERASE NEGATIVE (NEGATIVE); URINE NITRITE NEGATIVE (NEGATIVE); URINE PROTEIN 2+ (NEGATIVE); URINE UROBILINOGEN 4.0 E.U/dl mg/dL (0.2-1.0)
[2018-07-15 15:58] LABS: BASO % 0.6 % (0-2.0); EOS % 0.3 % (0-4.5); HEMOGLOBIN 13.8 GM/dL (10.7-15.3); LYMPH % 27.9 % (8-40); MCH 27.1 pg (25.7-33.7); MCHC 32.8 g/dl (32.0-36.0); MEAN CELL VOLUME 82.6 fl (80-96); MEAN PLT VOLUME 8.4 fl (7.5-11.1); MONO % 3.1 % (3.8-10.2); NEUT % 68.1 % (42.8-82.8); PLATELET COUNT 286 K/MM3 (134-434); RBC 5.09 M/mm3 (3.60-5.2); RDW 14.7 % (11.6-15.6)
[2018-07-15 15:59] LABS: EPI CELLS RARE /HPF (FEW); URINE HYALINE CAST 1 /lpf; URINE MUCUS MODERATE
[2018-07-15 16:06] LABS: ALBUMIN 4.4 g/dl (3.4-5.0); ALK PHOS 86 U/L (45-117); ANION GAP 14 MMOL/L (8-16); BILIRUBIN,TOTAL 0.6 mg/dL (0.2-1); BLOOD UREA NITROGEN 10 mg/dL (7-18); CALCIUM 8.5 mg/dL (8.5-10.1); CHLORIDE 105 mmol/L (98-107); CO2 21 mmol/L (21-32); CREATININE 0.5 mg/dL (0.55-1.3); GLUCOSE,RANDOM 73 mg/dL (74-106); LIPASE 178 U/L (73-393); POTASSIUM 3.3 mmol/L (3.5-5.1); SGOT/AST 46 U/L (15-37); SGPT/ALT 37 U/L (13-61); SODIUM 140 mmol/L (136-145); TOT PROT 8.3 g/dl (6.4-8.2)
--- NOTE | 2018-07-15 17:06 | PDOC ---
History of Present Illness - General Chief Complaint: Pain, Acute Stated Complaint: ABD PAIN Time Seen by Provider: 07/15/18 15:14 History Source: Patient, Old Records Exam Limitations: No Limitations - History of Present Illness Initial Comments: 47 y/o female presenting to [facility] ER via private auto (nephew dropped off) complaining of nausea and vomiting for the past four days. Emesis described as nonbloody, nonbilious. Has been not taken solid food PO. Only drinking Vodka. Estimates approx. a fifth of vodka everyday. Pt has a long history of EtOH abuse. Last inpatient detox at [facility] on 02/28/2018. Started drinking again 4 days ago. Does not know why she started drinking again. Reports good familial relationships and no increased stressor. Pt expressed interest in possible inpatient detox. Social Hx: - EtOH abuse, last detox 02/28/2018, no h/o of DT or withdrawal seizures - Tobacco: One cigarette per week - Street drugs: Denies Medical Hx: - Anemia - Gastritis - Hepatitis C - Depression and anxiety - EtOH abuse Surgical Hx: - Pt denies past surgical history. Past History - Past Medical History Allergies/Adverse Reactions: Allergies Allergy/AdvReac Type Severity Reaction Status Date / Time No Known Allergies Allergy Verified 07/15/18 15:17 Home Medications: Ambulatory Orders Ondansetron HCl [Zofran] 8 mg PO Q8H PRN 10/21/17 Ferrous Sulfate [Feosol] 325 mg PO DAILY #30 tab 10/24/17 Pantoprazole Sodium 40 mg PO DAILY #14 tablet. 10/24/17 Amoxicillin - [Amoxicillin 500mg Capsule -] 500 mg PO BID #7 capsule 02/27/18 Anemia: Yes Asthma: No Cancer: No Cardiac Disorders: No CVA: No COPD: No CHF: No Dementia: No Diabetes: No GI Disorders: Yes (Gastritis) Disorders: No HTN: No Hypercholesterolemia: No Kidney Stones: No Liver Disease: No Seizures: No Thyroid Disease: No - Surgical History Abdominal Surgery: No Appendectomy: No Cardiac Surgery: No Cholecystectomy: No Lung Surgery: No Neurologic Surgery: No Orthopedic Surgery: No - Reproductive History PID: No - Suicide/Smoking/Psychosocial Hx Smoking History: Never smoked Have you smoked in the past 12 months: No Information on smoking cessation initiated: No 'Breaking Loose' booklet given: 02/24/18 Hx Alcohol Use: Yes Drug/Substance Use Hx: Yes Substance Use Type: Alcohol Hx Substance Use Treatment: Yes (Last detox [facility] 10/21/17 -10/24/17) Review of Systems - Review of Systems Able to Perform ROS?: Yes Comments:: In addition to that documented in the HPI above, the additional ROS was obtained : Constitutional: Denies fevers or chills Eyes: Denies vision changes ENMT: Denies sore throat CV: Denies chest pain Resp: Denies SOB GI: Endorses vomiting. Denies diarrhea *Physical Exam - Vital Signs Last Vital Signs Temp Pulse Resp BP Pulse Ox 99.4 F 96 H 19 122/79 97 07/15/18 15:18 07/15/18 15:18 07/15/18 15:18 07/15/18 15:18 07/15/18 15:18 - Physical Exam Comments: Constitutional: Well-developed, well-nourished female in no acute distress or obvious discomfort. Found sitting in hospital chair; walked to . Alert and oriented x4. Answered all questions appropriately and completely. Speech was non -labored, non-pressured. HEENT: Normocephalic. No obvious external signs of trauma. Hearing grossly normal. No nasal discharge. Neck is supple, trachea is midline. Cardiovascular: Regular rate and regular rhythm. No murmur, rubs, clicks, or gallops. Peripheral pulses: Radial pulses full. Respiratory: Breathing unlabored. Equal chest rise and fall. Clear to auscultation bilaterally. No stridor, no wheezing, no rhonchi. Gastrointestinal: abdomen is generally subjectively tender without rebound or guarding; otherwise soft and non-distended. No pulsatile masses. No overlying skin lesions or obvious signs of trauma. Neuro: Alert and oriented. Moving all four extremities spontaneously. Gait normal. Observed walking unassisted through the department without difficulty. Skin: Warm, dry, and intact. No bruising, rashes, or other lesions. Psych: Affect: appropriate. Mood: normal. ED Treatment Course - LABORATORY CBC & Chemistry Diagram: 07/15/18 15:40 07/15/18 15:40 - ADDITIONAL ORDERS Additional order review: Laboratory Results 07/15/18 07/15/18 07/15/18 15:40 15:40 15:40 Sodium 140 Potassium 3.3 L Chloride 105 Carbon Dioxide 21 Anion Gap 14 BUN 10 Creatinine 0.5 L Creat Clearance w eGFR > 60 Random Glucose 73 L Calcium 8.5 Total Bilirubin 0.6 AST 46 H ALT 37 Alkaline Phosphatase 86 Total Protein 8.3 H Albumin 4.4 Lipase 178 Urine Color Yellow Urine Appearance Clear Urine pH 6.0 Ur Specific [place] 1.021 Urine Protein 2+ H Urine Glucose (UA) Negative Urine Ketones 2+ H Urine Blood 1+ H Urine Nitrite Negative Urine Bilirubin Negative Urine Urobilinogen 4.0 e.u/dl H Ur Leukocyte Esterase Negative Urine WBC (Auto) 2 Urine RBC (Auto) 13 Ur Epithelial Cells Rare Hyaline Casts 1 Urine Mucus Moderate Alcohol, Quantitative 178.6 H 07/15/18 15:40 RBC 5.09 MCV 82.6 MCHC 32.8 RDW 14.7 MPV 8.4 Neutrophils % 68.1 Lymphocytes % 27.9 Monocytes % 3.1 L Eosinophils % 0.3 Basophils % 0.6 - Medications Given in the ED: ED Medications Discontinued Medications Generic Name Dose Route Start Last Admin Trade Name Jensenq PRN Reason Stop Dose Admin Ondansetron HCl 4 mg 07/15/18 15:21 07/15/18 15:53 Zofran Injection IVPB 07/15/18 15:22 4 mg ONCE ONE Administration Sodium Chloride 1,000 ml 07/15/18 15:30 07/15/18 15:53 Normal Saline - IV 07/15/18 15:31 1,000 ml ONCE ONE Administration Medical Decision Making - Medical Decision Making *Reviewed vital signs, nursing notes, and prior visit documentation (if available). 47 y/o female complaining of nausea, vomiting, and abdominal pain following EtOH relapse. D/D includes but not limited to EtOH abuse/withdrawal, gastritis, pancreatitis, hepatitis, GERD, PUD. Physical exam unrevealing. No peritoneal signs. RME ordered: CBC, CMP, Lipase, UA, Urine culture, Zofran. Additionally ordered Pepcid and Maalox for additional symptom relief. No imaging indicated at this time. Pt tolerated PO well. 19:09 Telephone consult with physician at [facility] detox. Accepted pt. Suggested administering a benzo. Mildly tremulous on repeat exam. Ordered PO Ativan. Repeat abdominal exam unchanged from prior. Observed walking unassisted through the department without difficulty. Answered all questions. Provided return precautions. Pt expressed verbal understanding and agreement with plan to discharge home and/or [facility] for Detox. Heavily encouraged pt to self- present to [facility]. *DC/Admit/Observation/Transfer Diagnosis at time of Disposition: Alcohol abuse, Alcohol dependence with uncomplicated withdrawal Vomiting Qualifiers: Vomiting type: unspecified Vomiting Intractability: non-intractable Nausea presence: with nausea Qualified Code(s): R11.2 - Nausea with vomiting, unspecified - Discharge Dispostion Disposition: HOME Condition at time of disposition: Stable Decision to Admit order: No - Referrals - Patient Instructions Printed Discharge Instructions: DI for Alcohol Abuse, DI for Alcoholic Gastritis Additional Instructions: Belkis sntomas son probables debido a la irritacin de brannon estmago debido al alcohol. Debera desaparecer despus de dejar de beber. Tambin necesita asegurarse de que est comiendo. Webb sido aceptado en [facility] para desintoxicacin para pacientes hospitalizados. Te deseamos suerte! Vaya al departamento de emergencias ms cercano si brannon afeccin empeora o si jackie que necesita dedrick evaluacin de emergencia adicional. Your symptoms are likely because of irritation to your stomach from the alcohol. It should go away after you quit drinking. You also need to make sure you are eating. You have been accepted to [facility] for inpatient Detox. We wish you luck! Go to the nearest emergency department if your condition worsens or you feel like you need additional emergency evaluation. Print Language: JAPANESE - Post Discharge Activity
[2018-07-15] MEDS ORDERED: MAG HYDROX/AL HYDROX/SIMETH 30 ML UNIT-DOSE CUP PO ONE (17:36)
[2018-07-15] MEDS ORDERED: FAMOTIDINE 20 MG/50 ML IVPB 20 MG/50 ML MG IVPB ONE ×2 (17:37→17:40)
[2018-07-15] MEDS ORDERED: MAG HYDROX/AL HYDROX/SIMETH 30 ML UNIT-DOSE CUP ONE (17:40)
[2018-07-15] MEDS ORDERED: POTASSIUM CHLORIDE ORAL LIQUID 20 MEQ/15 ML PO ONE (18:00)
--- NOTE | 2018-07-15 18:00 | PDOC ---
Attending Attestation - HPI HPI: This patient is a 47 year old female, with PMHx of alcohol dependance (last detox at [facility] in February 2018), who presents to the ED for 4 days of nausea, vomiting, and decreased appetite. She states that she has started to drink again but denies any specific reason why. She states that she has not been tolerating PO food but has been able to tolerate alcohol. She states that she usually drinks one-fifth bottle of vodka and she states that she last drank at 2pm. She states that she began vomiting shortly after drinking. She notes that her vomit is non-bloody, non bilious and clear-whitish. She also notes associated shakes. She denies any current diarrhea. She does not report any other complaints. She states that she would consider detox as long as it does not interfere with work. Denies h/o abdominal surgeries. <Iona Calix - Last Filed: 07/15/18 18:21> - ED Attending Attestation I have performed the following: I have examined & evaluated the patient, The case was reviewed & discussed with the resident, I agree w/resident's findings & plan, Exceptions are as noted - Physicial Exam PE: 07/15/18 17:59 on exam awake alert abd soft mild epigastric ttp, suprapubic ttp, no rebound no guarding. no cva tenderenss. skin warm and dry. alert oriented speech clear. gait steady. - Medical Decision Making 07/15/18 17:57 47 yo F with h/o etoh abuse, here after several days of binge drinking, now c/o abd pain intractable n/v. states abd pain started after vomiting. no h/o prior abd surgery. denies other drug use. all nonbilious no bloody. no change to stool. no other complaints. on exam awake alert abd soft mild epigastric ttp, suprapubic ttp, no rebound no guarding. no cva tenderenss. differential pancreatitis, gastritic, ketoacidosis. electrolyte abnormality, plan labs tox screen antiemetics. after zofran pt feels improved. mild hypokalemia. will replete. pepcid. iv hydration. will d/w [facility]. 07/15/18 20:10 pt has been in ED for 4 hours, was arranged to go to [facility], at this point pt has changed her mind, would like to take taxi home. clinically sober at this point, dc to home. encouraged to come back for any concerns. <Valentina Germain - Last Filed: 07/15/18 20:11>
[2018-07-15] MEDS ORDERED: POTASSIUM CHLORIDE ORAL LIQUID 20 MEQ/15 ML ONE (18:33)
[2018-07-15] MEDS ORDERED: LORazepam 1 MG TABLET PO ONE (19:25)
[2018-07-15] MEDS ORDERED: LORazepam 0.5 MG TABLET ONE (19:37)
[2018-07-15 20:27] VITALS: BP 126/68; PULSE 92; TEMP 98.8
== END 2018-07-15 20:27 | disposition home or self-care (01) ==
LOC: JER 14:39
PROC: 3E033GC Introduction of Other Therapeutic Substance into Peripheral Vein, Percutaneous Approach (ICD-10-PCS; principal; 2018-07-15)
PROC: 3E0337Z Introduction of Electrolytic and Water Balance Substance into Peripheral Vein, Percutaneous Approach (ICD-10-PCS; 2018-07-15)
DX: R11.2 Nausea with vomiting, unspecified (principal); F10.20 Alcohol dependence, uncomplicated; F10.239 Alcohol dependence with withdrawal, unspecified
CPT/HCPCS: 36415; 80053; 80307; 81003; 81015; 83690; 84703; 85025; 87086; 99285-25

== ENCOUNTER 2018-11-04 16:50 | Inpatient (IN) | payer MEDICARE ==
[2018-11-04 22:48] VITALS: BMI 28.5
--- NOTE | 2018-11-05 02:38 | HP ---
CIWA Score Nausea/Vomitin-No Nausea/No Vomiting Muscle Tremors: 4-Moderate,w/Arms Extend Anxiety: 4-Mod. Anxious/Guarded Agitation: 1-Slight > Activity Paroxysmal Sweats: 4-Forehead w/Sweat Beads Orientation: 0-Oriented Tacttile Disturbances: 2-Mild Itch/Numbness/Burn Auditory Disturbances: 0-None Visual Disturbances: 0-None Headache: 2-Mild CIWA-Ar Total Score: 17 - Admission Criteria OASAS Guidelines: Admission for Medically Managed Detox: Requires at least one of the followin. CIWA greater than 12 2. Seizures within the past 24 hours 3. Delirium tremens within the past 24 hours 4. Hallucinations within the past 24 hours 5. Acute intervention needed for co occurring medical disorder 6. Acute intervention needed for co occurring psychiatric disorder 7. Severe withdrawal that cannot be handled at a lower level of care (continued vomiting, continued diarrhea, abnormal vital signs) requiring intravenous medication and/or fluids 8. Patient presents the following: CIWA greater than 12 Admission Criteria Met: Admission criteria met Admission ROS [facility] Chief Complaint: seeking detox for worsening withdrawal sx's Allergies/Adverse Reactions: Allergies Allergy/AdvReac Type Severity Reaction Status Date / Time No Known Allergies Allergy Verified 11/05/18 00:00 History of Present Illness: 48 y.o. female with long hx/o alcoholism here for detox. she is self referred, known to the program. Last admission 01/2018. presents today w/ c/o withdrawal sx 's. Ciwa 17. ELAINE 0.170, utox + bzo. Client denies any recent detox. report longest clean time is 4 years clean self maintained. lives with family, employed , denies legals, denies si/hi,avh, denies seizures pmhx- anemia, hepc, oa psych- INSOMNIA Exam Limitations: No Limitations, Language Barrier ([employer] [place]/ MAC[place]ONIAN SPEAKING ROB AT TIMES MAY HAVE DIFFICULTY CUMMUNICATING AND UNDERSTANDING THE [place]IAN LANUAGE. [employer] [place] SPEAKING SYSTEM CONTROLLER USED FOR INTAKE) - Ebola screening Have you traveled outside of the country in the last 21 days: No (N) Have you had contact with anyone from an Ebola affected area: No Have you been sick,other than usual withdrawal symptoms: No Do you have a fever: No - Review of Systems Constitutional: Chills, Loss of Appetite, Malaise, Night Sweats, Changes in sleep EENT: reports: No Symptoms Reported Respiratory: reports: No Symptoms reported Cardiac: reports: Palpitations GI: reports: Diarrhea, Poor Appetite, Poor Fluid Intake : reports: No Symptoms Reported Musculoskeletal: reports: Back Pain Integumentary: reports: Flushing, Sweating Neuro: reports: Headache, Tremors Endocrine: reports: No Symptoms Reported Hematology: reports: Anemia Psychiatric: reports: Orientated x3, Anxious Other Systems: Reviewed and Negative Patient History - Patient Medical History Hx Anemia: Yes Hx Asthma: No Hx Chronic Obstructive Pulmonary Disease (COPD): No Hx Cancer: No Hx Cardiac Disorders: No Hx Congestive Heart Failure: No Hx Hypertension: No Hx Hypercholesterolemia: No Hx Pacemaker: No HX Cerebrovascular Accident: No Hx Seizures: No Hx Dementia: No Hx Diabetes: No Hx Gastrointestinal Disorders: Yes (Gastritis) Hx Liver Disease: No Hx Genitourinary Disorders: No Hx Sexually Transmitted Disorders: No Hx Renal Disease (ESRD): No Hx Thyroid Disease: No Hx Human Immunodeficiency Virus (HIV): No Hx Hepatitis C: Yes Hx Depression: No Hx Suicide Attempt: No Hx Bipolar Disorder: No Hx Schizophrenia: No - Patient Surgical History Past Surgical History: No Hx Neurologic Surgery: No Hx Cataract Extraction: No Hx Cardiac Surgery: No Hx Lung Surgery: No Hx Breast Surgery: No Hx Breast Biopsy: No Hx Abdominal Surgery: No Hx Appendectomy: No Hx Cholecystectomy: No Hx Genitourinary Surgery: No Hx Section: No Hx Orthopedic Surgery: No Hx Hysterectomy: No Anesthesia Reaction: No - PPD History Previous Implant?: Yes Documented Results: Negative w/proof Implanted On Prior [facility] Admission?: Yes Date: 10/23/17 Results: 0mm PPD to be Administered?: Yes - Reproductive History Patient is a Female of Child Bearing Age (11 -55 yrs old): Yes Last Menstrual Period: 11/02/18 Patient : No (neg [facility] [place]) - Smoking Cessation Smoking history: Current some day smoker Have you smoked in the past 12 months: Yes Aproximately how many cigarettes per day: 1 Cigars Per Day: 0 Hx Chewing Tobacco Use: No Initiated information on smoking cessation: Yes 'Breaking Loose' booklet given: 11/05/18 - Substance & Tx. History Hx Alcohol Use: Yes Hx Substance Use: Yes Substance Use Type: Alcohol Hx Substance Use Treatment: Yes ([facility]) - Substances Abused Alcohol Route: Oral Frequency: Daily Amount used: WINE- 3 PINTS, LIQUOR- 1 PINTS Age of first use: 16 Date of Last Use: 11/05/18 Family Disease History - Family Disease History Family Disease History: Heart Disease: Father (ETOH DEPENDENCE ), Other: Father Admission Physical Exam S - Vital Signs Vital Signs: Vital Signs - 24 hr 11/04/18 22:47 Temperature 96.8 F L Pulse Rate 122 H Respiratory 18 Rate Blood Pressure 125/89 - Physical General Appearance: Yes: Appropriately Dressed, Moderate Distress, Alcohol on Breath, Tremorous, Sweating, Anxious, Other HEENTM: Yes: EOMI, Normocephalic, Normal Voice, GARY, Pharynx Normal, Other ( dialated pupils) Respiratory: Yes: Chest Non-Tender, Lungs Clear, Normal Breath Sounds, No Respiratory Distress, No Accessory Muscle Use Neck: Yes: No masses,lesions,Nodules, Supple, Trachea in good position Cardiology: Yes: Regular Rhythm, S1, S2, Tachycardia Abdominal: Yes: Soft, Organomegaly, Increased Bowel Sounds Genitourinary: Yes: Within Normal Limits (no c/o offered) Back: Yes: Normal Inspection Musculoskeletal: Yes: full range of Motion, Gait Steady Extremities: Yes: Normal Capillary Refill, Normal Range of Motion, Non-Tender, Tremors Neurological: Yes: hand winder II-XII NML intact, Fully Oriented, Alert, Motor Strength 5/5 Integumentary: Yes: Warm, Moist, Other (flushed) Lymphatic: Yes: Within Normal Limits - Diagnostic (1) Alcohol dependence with uncomplicated withdrawal Current Visit: Yes Status: Acute (2) Alcohol induced insomnia Current Visit: Yes Status: Chronic (3) Alcohol-induced mood disorder Current Visit: Yes Status: Chronic (4) Depression Current Visit: Yes Status: Chronic Qualifiers: Depression Type: dysthymia Qualified Code(s): F34.1 - Dysthymic disorder (5) Gastritis Current Visit: Yes Status: Chronic Qualifiers: Gastritis type: unspecified gastritis (6) Hep C w/o coma, chronic Current Visit: No Status: Chronic (7) Iron deficiency anemia Current Visit: Yes Status: Chronic Qualifiers: Iron deficiency anemia type: unspecified iron deficiency Qualified Code(s) : D50.9 - Iron deficiency anemia, unspecified (8) Osteoarthritis Current Visit: Yes Status: Chronic (9) Substance induced mood disorder Current Visit: Yes Status: Chronic Cleared for Admission [facility] - Detox or Rehab [facility] Level of Care: Medically Managed Detox Regimen/Protocol: Librium Claeared for Rehab Admission: No [facility] Breath Alcohol Content Breath Alcohol Content: 0.170 Urine Pregancy Test - Result Urine Test Results: Negative - NO Line Present Urine Drug Screen - Results Drug Screen Negative: No Urine Drug Screen Results: BZO-Benzodiazepines Inpatient Rehab Admission - Rehab Decision to Admit Inpatient rehab admission?: No
[2018-11-05] MEDS ORDERED: MENTHOL/PHENOL 1 EACH UD MM PRN (02:44)
[2018-11-05] MEDS ORDERED: NICOTINE POLACRILEX 2 MG GUM BUC PRN (02:44)
[2018-11-05] MEDS ORDERED: hydrOXYzine PAMOATE 25 MG CAPSULE (FP) PO PRN (02:44)
[2018-11-05] MEDS ORDERED: MAGNESIUM CITRATE 300 ML BOTTLE PO PRN (02:44)
[2018-11-05] MEDS ORDERED: ACETAMINOPHEN 325 MG TABLET (FP) PO PRN ×2 (02:44)
[2018-11-05] MEDS ORDERED: MAGNESIUM HYDROX 2400MG/30ML ORAL SUSPENSION 30 ML CUP PO PRN (02:44)
[2018-11-05] MEDS ORDERED: BISMUTH SUBSALICYLATE 524 MG/30 ML UD PO PRN (02:44)
[2018-11-05] MEDS ORDERED: MAG HYDROX/AL HYDROX/SIMETH 30 ML UNIT-DOSE CUP PO PRN (02:44)
[2018-11-05] MEDS ORDERED: METHOCARBAMOL 500 MG TABLET PO PRN (02:44)
[2018-11-05] MEDS: chlordiazePOXIDE HCL 25 MG CAPSULE PO PRN ×3 (03:30→13:30)
[2018-11-05] MEDS: chlordiazePOXIDE HCL 25 MG CAPSULE PO SCH ×4 (06:11→22:33)
[2018-11-05] MEDS: PRENATAL VITAMINS W/ FOLIC ACID TABLET (FP) PO SCH (10:14)
[2018-11-05] MEDS: IBUPROFEN 400 MG TABLET (FP) PO PRN ×2 (10:15→23:31)
[2018-11-05 10:20] LABS: HEMATOCRIT 41.4 % (32.4-45.2); HEMOGLOBIN 14.3 GM/dL (10.7-15.3); MCH 29.6 pg (25.7-33.7); MCHC 34.6 g/dl (32.0-36.0); MEAN CELL VOLUME 85.6 fl (80-96); MEAN PLT VOLUME 8.7 fl (7.5-11.1); PLATELET COUNT 251 K/MM3 (134-434); RBC 4.83 M/mm3 (3.60-5.2); RDW 15.4 % (11.6-15.6); WHITE BLOOD COUNT 6.3 K/mm3 (4.0-10.0)
[2018-11-05 10:27] LABS: ALBUMIN 3.8 g/dl (3.4-5.0); ALK PHOS 80 U/L (45-117); ANION GAP 13 MMOL/L (8-16); BILIRUBIN,TOTAL 0.3 mg/dL (0.2-1); BLOOD UREA NITROGEN 12 mg/dL (7-18); CALCIUM 8.2 mg/dL (8.5-10.1); CHLORIDE 107 mmol/L (98-107); CO2 22 mmol/L (21-32); CREATININE 0.7 mg/dL (0.55-1.3); GLUCOSE,RANDOM 103 mg/dL (74-106); POTASSIUM 3.1 mmol/L (3.5-5.1); SGOT/AST 30 U/L (15-37); SGPT/ALT 28 U/L (13-61); SODIUM 142 mmol/L (136-145); TOT PROT 7.7 g/dl (6.4-8.2)
--- NOTE | 2018-11-05 15:18 | PN ---
[facility] CIWA - CIWA Score Nausea/Vomitin-No Nausea/No Vomiting Muscle Tremors: 4-Moderate,w/Arms Extend Anxiety: 4-Mod. Anxious/Guarded Agitation: 4-Moderately Restless Paroxysmal Sweats: No Perspiration Orientation: 0-Oriented Tacttile Disturbances: 3-Moderate Itch/Numb/Burn Auditory Disturbances: 0-None Visual Disturbances: 2-Mild Sensitivity Headache: 0-None Present CIWA-Ar Total Score: 17 BHS Progress Note (SOAP) Subjective: Tremors, Anxious, Interrupted Sleep. Objective: PATIENT A & O X 3, OBSERVED AMBULATING ON UNIT. IN NO ACUTE DISTRESS. 11/05/18 15:15 Vital Signs Temperature 98.6 F 11/05/18 13:53 Pulse Rate 113 H 11/05/18 13:53 Respiratory Rate 20 11/05/18 13:53 Blood Pressure 131/81 11/05/18 13:53 O2 Sat by Pulse Oximetry (%) Laboratory Tests 11/05/18 11/05/18 07:40 07:40 WBC 6.3 RBC 4.83 Hgb 14.3 Hct 41.4 MCV 85.6 MCH 29.6 MCHC 34.6 RDW 15.4 Plt Count 251 MPV 8.7 Sodium 142 Potassium 3.1 L Chloride 107 Carbon Dioxide 22 Anion Gap 13 BUN 12 Creatinine 0.7 Creat Clearance w eGFR > 60 Random Glucose 103 Calcium 8.2 L Total Bilirubin 0.3 AST 30 ALT 28 Alkaline Phosphatase 80 Total Protein 7.7 Albumin 3.8 LABS NOTED. RPR RESULT PENDING. 11/05/18 15:16 Assessment: 11/05/18 15:17 WITHDRAWAL SYMPTOMS. HYPOKALEMIA. Plan: CONTINUE DETOX. INCREASE DAILY PO FLUID INTAKE. K-DUR, 40 MEQ PO X 1 NOW, THEN 20 MEQ PO BID STARTING TOMORROW AM. REPEAT K LEVEL ON 11/07/2018.
[2018-11-05] MEDS ORDERED: POTASSIUM CHLORIDE TABS 20 MEQ TABLET.ER (FP) PO ONE (15:45)
--- NOTE | 2018-11-05 16:13 | CONSULT ---
[facility] Psychiatric Consult - Data Date of interview: 11/05/18 Admission source: [facility] Identifying data: Readmission to [facility] [place] for this 48 y/o [place]-born female self-referred to [facility] [place] for detoxification (alcohol). Patient is , a mother of three, domiciled and currently employed. Substance Abuse History: Discussed with the patient. Ms Salazar admits to consuming 2-3 pints of vodka daily and smoking cigarettes occasionally. Additional details in current [facility] report : Smoking history: Current some day smoker. Have you smoked in the past 12 months: Yes. Aproximately how many cigarettes per day: 1. Cigars Per Day: 0. Hx Chewing Tobacco Use: No. Initiated information on smoking cessation: Yes. 'Breaking Loose' booklet given : 11/05/18. - Substance & Tx. History. Hx Alcohol Use: Yes. Hx Substance Use : Yes. Substance Use Type: Alcohol. Hx Substance Use Treatment: Yes ([facility]). - Substances Abused. Alcohol. Route: Oral. Frequency: Daily. Amount used : WINE- 3 PINTS, LIQUOR- 1 PINTS. Age of first use: 16. Date of Last Use: 05/18 Medical History: Consistent with hepatitis C, anemia and arthritis. Psychiatric History: Patient denies. Physical/Sexual Abuse/Trauma History: Patient denies. Additional Comment: Urine Drug Screen Results: BZO-Benzodiazepines. Noted. Mental Status Exam - Mental Status Exam Alert and Oriented to: Time, Place, Person Cognitive Function: Good Patient Appearance: Well Groomed (short stature, overweight) Mood: Hopeful, Euthymic Affect: Appropriate, Normal Range Patient Behavior: Appropriate, Cooperative Speech Pattern: Clear, Appropriate Voice Loudness: Normal Thought Process: Intact, Goal Oriented Thought Disorder: Not Present Hallucinations: Denies Suicidal Ideation: Denies Homicidal Ideation: Denies Insight/Judgement: Poor Sleep: Fair Appetite: Good Muscle strength/Tone: Normal Gait/Station: Normal Psychiatric Findings - Problem List ([place] 1, 2,3) (1) Alcohol dependence with uncomplicated withdrawal Current Visit: Yes Status: Acute - Initial Treatment Plan Initial Treatment Plan: Psychoeducation. Sleep hygiene. Detoxification in progress. Support. Relapse prevention : discussed with the patient. Motivational sessions. Observation.
[2018-11-05 19:47] LABS: URINE APPEARANCE TURBID; URINE BILIRUBIN NEGATIVE (<2.0 mg/dL); URINE COLOR YELLOW; URINE GLUCOSE (UA) NEGATIVE (NEGATIVE); URINE KETONE TRACE (NEGATIVE); URINE LEUK ESTERASE NEGATIVE (NEGATIVE); URINE NITRITE NEGATIVE (NEGATIVE); URINE PROTEIN 2+ (NEGATIVE)
[2018-11-05 19:54] LABS: URINE MUCUS RARE
[2018-11-05] MEDS: THIAMINE HCL 100 MG TABLET (FP) PO SCH (22:33)
[2018-11-05] MEDS: MELATONIN 5 MG TABLETS PO PRN (22:33)
[2018-11-06] MEDS: chlordiazePOXIDE HCL 25 MG CAPSULE PO SCH ×4 (06:12→22:20)
[2018-11-06] MEDS: POTASSIUM CHLORIDE TABS 20 MEQ TABLET.ER (FP) PO SCH ×2 (10:51→17:53)
[2018-11-06] MEDS: PRENATAL VITAMINS W/ FOLIC ACID TABLET (FP) PO SCH (10:51)
[2018-11-06] MEDS ORDERED: COLLOIDAL OATMEAL 1 BAR EACH TP PRN (10:55)
--- NOTE | 2018-11-06 11:22 | PN ---
S CIWA - CIWA Score Nausea/Vomitin-Mild Nausea/No Vomiting Muscle Tremors: 3 Anxiety: 2 Agitation: 3 Paroxysmal Sweats: 1-Minimal Palms Moist Orientation: 0-Oriented Tacttile Disturbances: 0-None Auditory Disturbances: 0-None Visual Disturbances: 0-None Headache: 2-Mild CIWA-Ar Total Score: 12 BHS Progress Note (SOAP) Subjective: feeling better today showered good appetites less tremor mild sweating more energy less anxious patient is goal focused that she determines to maintain sober she wants to return to work and her daughter will pick her up from detox unit patient is optimistic about her rehab journey Objective: 11/06/18 11:22 Vital Signs Temperature 97.7 F 11/06/18 09:32 Pulse Rate 102 H 11/06/18 09:32 Respiratory Rate 20 11/06/18 09:32 Blood Pressure 121/89 11/06/18 09:32 O2 Sat by Pulse Oximetry (%) Laboratory Last Values WBC 6.3 K/mm3 (4.0-10.0) 11/05/18 07:40 RBC 4.83 M/mm3 (3.60-5.2) 11/05/18 07:40 Hgb 14.3 GM/dL (10.7-15.3) 11/05/18 07:40 Hct 41.4 % (32.4-45.2) 11/05/18 07:40 MCV 85.6 fl (80-96) 11/05/18 07:40 MCH 29.6 pg (25.7-33.7) 11/05/18 07:40 MCHC 34.6 g/dl (32.0-36.0) 11/05/18 07:40 RDW 15.4 % (11.6-15.6) 11/05/18 07:40 Plt Count 251 K/MM3 (134-434) 11/05/18 07:40 MPV 8.7 fl (7.5-11.1) 11/05/18 07:40 Sodium 142 mmol/L (136-145) 11/05/18 07:40 Potassium 3.1 mmol/L (3.5-5.1) L 11/05/18 07:40 Chloride 107 mmol/L (98-107) 11/05/18 07:40 Carbon Dioxide 22 mmol/L (21-32) 11/05/18 07:40 Anion Gap 13 MMOL/L (8-16) 11/05/18 07:40 BUN 12 mg/dL (7-18) 11/05/18 07:40 Creatinine 0.7 mg/dL (0.55-1.3) 11/05/18 07:40 Creat Clearance w eGFR > 60 (>60) 11/05/18 07:40 Random Glucose 103 mg/dL (74-106) 11/05/18 07:40 Calcium 8.2 mg/dL (8.5-10.1) L 11/05/18 07:40 Total Bilirubin 0.3 mg/dL (0.2-1) 11/05/18 07:40 AST 30 U/L (15-37) 11/05/18 07:40 ALT 28 U/L (13-61) 11/05/18 07:40 Alkaline Phosphatase 80 U/L (45-117) 11/05/18 07:40 Total Protein 7.7 g/dl (6.4-8.2) 11/05/18 07:40 Albumin 3.8 g/dl (3.4-5.0) 11/05/18 07:40 Urine Color Yellow 11/05/18 15:08 Urine Appearance Turbid 11/05/18 15:08 Urine pH 6.0 (5.0-8.0) 11/05/18 15:08 Ur Specific [place] 1.026 (1.010-1.035) 11/05/18 15:08 Urine Protein 2+ (NEGATIVE) H 11/05/18 15:08 Urine Glucose (UA) Negative (NEGATIVE) 11/05/18 15:08 Urine Ketones Trace (NEGATIVE) H 11/05/18 15:08 Urine Blood 2+ (NEGATIVE) H 11/05/18 15:08 Urine Nitrite Negative (NEGATIVE) 11/05/18 15:08 Urine Bilirubin Negative (<2.0 mg/dL) 11/05/18 15:08 Urine Urobilinogen 2.0 mg/dL (0.2-1.0) H 11/05/18 15:08 Ur Leukocyte Esterase Negative (NEGATIVE) 11/05/18 15:08 Urine WBC (Auto) 27 /hpf (3-5) 03/09/19 15:08 Urine RBC (Auto) None /hpf (0-3) 11/05/18 15:08 Urine Mucus Rare 11/05/18 15:08 lab noted repeat K+ pending 11/06/18 11:23 Assessment: 11/06/18 11:23 mild alcohol withdrawal sx 11/06/18 11:23 discuss hepatitis c treatment from primary care provider Plan: continue detox
[2018-11-06] MEDS: THIAMINE HCL 100 MG TABLET (FP) PO SCH (22:20)
[2018-11-06] MEDS: MELATONIN 5 MG TABLETS PO PRN (22:20)
[2018-11-06] MEDS: IBUPROFEN 400 MG TABLET (FP) PO PRN (22:21)
[2018-11-07] MEDS ORDERED: chlordiazePOXIDE HCL 10 MG CAPSULE PO PRN (05:00)
[2018-11-07] MEDS ORDERED: chlordiazePOXIDE HCL 10 MG CAPSULE PO SCH (05:00)
[2018-11-07 06:37] VITALS: BP 115/68; PULSE 103; TEMP 98
--- NOTE | 2018-11-07 14:24 | DS ---
[facility] Detox Discharge Summary Admission Date: 11/05/18 Discharge Date: 11/07/18 - History Present History: Alcohol Dependence Additional Comments: 48 years old female admitted on 11/05/18 for alcohol withdrawal stabilization completed detox regimen aftercare Dr. Garg - Physical Exam Results Vital Signs: Vital Signs Temperature 98.0 F 11/07/18 06:30 Pulse Rate 103 H 11/07/18 06:30 Respiratory Rate 18 11/07/18 06:30 Blood Pressure 115/68 11/07/18 06:30 O2 Sat by Pulse Oximetry (%) Pertinent Admission Physical Exam Findings: alcohol withdrawal sx Laboratory Last Values WBC 6.3 K/mm3 (4.0-10.0) 11/05/18 07:40 RBC 4.83 M/mm3 (3.60-5.2) 11/05/18 07:40 Hgb 14.3 GM/dL (10.7-15.3) 11/05/18 07:40 Hct 41.4 % (32.4-45.2) 11/05/18 07:40 MCV 85.6 fl (80-96) 11/05/18 07:40 MCH 29.6 pg (25.7-33.7) 11/05/18 07:40 MCHC 34.6 g/dl (32.0-36.0) 11/05/18 07:40 RDW 15.4 % (11.6-15.6) 11/05/18 07:40 Plt Count 251 K/MM3 (134-434) 11/05/18 07:40 MPV 8.7 fl (7.5-11.1) 11/05/18 07:40 Sodium 142 mmol/L (136-145) 11/05/18 07:40 Potassium 3.1 mmol/L (3.5-5.1) L 11/05/18 07:40 Chloride 107 mmol/L (98-107) 11/05/18 07:40 Carbon Dioxide 22 mmol/L (21-32) 11/05/18 07:40 Anion Gap 13 MMOL/L (8-16) 11/05/18 07:40 BUN 12 mg/dL (7-18) 11/05/18 07:40 Creatinine 0.7 mg/dL (0.55-1.3) 11/05/18 07:40 Creat Clearance w eGFR > 60 (>60) 11/05/18 07:40 Random Glucose 103 mg/dL (74-106) 11/05/18 07:40 Calcium 8.2 mg/dL (8.5-10.1) L 11/05/18 07:40 Total Bilirubin 0.3 mg/dL (0.2-1) 11/05/18 07:40 AST 30 U/L (15-37) 11/05/18 07:40 ALT 28 U/L (13-61) 11/05/18 07:40 Alkaline Phosphatase 80 U/L (45-117) 11/05/18 07:40 Total Protein 7.7 g/dl (6.4-8.2) 11/05/18 07:40 Albumin 3.8 g/dl (3.4-5.0) 11/05/18 07:40 Urine Color Yellow 11/05/18 15:08 Urine Appearance Turbid 11/05/18 15:08 Urine pH 6.0 (5.0-8.0) 11/05/18 15:08 Ur Specific [place] 1.026 (1.010-1.035) 11/05/18 15:08 Urine Protein 2+ (NEGATIVE) H 11/05/18 15:08 Urine Glucose (UA) Negative (NEGATIVE) 11/05/18 15:08 Urine Ketones Trace (NEGATIVE) H 11/05/18 15:08 Urine Blood 2+ (NEGATIVE) H 11/05/18 15:08 Urine Nitrite Negative (NEGATIVE) 11/05/18 15:08 Urine Bilirubin Negative (<2.0 mg/dL) 11/05/18 15:08 Urine Urobilinogen 2.0 mg/dL (0.2-1.0) H 11/05/18 15:08 Ur Leukocyte Esterase Negative (NEGATIVE) 11/05/18 15:08 Urine WBC (Auto) 27 /hpf (3-5) 11/05/18 15:08 Urine RBC (Auto) None /hpf (0-3) 11/05/18 15:08 Urine Mucus Rare 11/05/18 15:08 RPR Titer Nonreactive (NONREACTIVE) 11/05/18 07:40 lab noted low K+ - Treatment Hospital Course: Detox Protocol Followed, Detoxed Safely, Responded well, Discharged Condition Good, Rehab Referral Accepted Patient has Accepted a Rehab Referral to: Dr. Garg - Medication Discharge Medications: Ambulatory Orders Ondansetron HCl [Zofran] 8 mg PO Q8H PRN 10/21/17 Ferrous Sulfate [Feosol] 325 mg PO DAILY #30 tab 10/24/17 Pantoprazole Sodium 40 mg PO DAILY #14 tablet. 10/24/17 Amoxicillin - [Amoxicillin 500mg Capsule -] 500 mg PO BID #7 capsule 02/27/18 - Diagnosis (1) Alcohol dependence with uncomplicated withdrawal Status: Acute (2) Hep C w/o coma, chronic Status: Chronic (3) Substance induced mood disorder Status: Suspected (4) Positive PPD Status: Resolved - AMA Did Patient Leave Against Medical Advice: No
[2018-11-08] MEDS ORDERED: chlordiazePOXIDE HCL 10 MG CAPSULE PO SCH (05:00)
== END 2018-11-07 06:40 | disposition home or self-care (01) | DRG 775 ==
LOC: YASAS 16:50 → Y3N 11-05 00:17
PROVIDERS: ADMIT Surgery; ATTEND Surgery
PROC: HZ2ZZZZ Detoxification Services for Substance Abuse Treatment (ICD-10-PCS; principal; 2018-11-05)
DX: F10.230 Alcohol dependence with withdrawal, uncomplicated (principal); F10.24 Alcohol dependence with alcohol-induced mood disorder; F19.24 Other psychoactive substance dependence with psychoactive substance-induced mood disorder; F10.282 Alcohol dependence with alcohol-induced sleep disorder; F34.1 Dysthymic disorder; E87.6 Hypokalemia; D50.9 Iron deficiency anemia, unspecified; K29.70 Gastritis, unspecified, without bleeding; M19.90 Unspecified osteoarthritis, unspecified site; B18.2 Chronic viral hepatitis C
CPT/HCPCS: 36415; 80053; 81003; 81015; 85027; 86593

== ENCOUNTER 2018-12-26 16:30 | Inpatient (IN) | payer SELFPAY ==
[2018-12-26 19:53] VITALS: BMI 28.3
--- NOTE | 2018-12-26 20:14 | HP ---
CIWA Score Nausea/Vomitin Muscle Tremors: 4-Moderate,w/Arms Extend Anxiety: 2 Agitation: 2 Paroxysmal Sweats: 2 Orientation: 0-Oriented Tacttile Disturbances: 2-Mild Itch/Numbness/Burn Auditory Disturbances: 2-Mild Harshness/Frighten Visual Disturbances: 1-Very Mild Sensitivity Headache: 1-Very Mild CIWA-Ar Total Score: 18 - Admission Criteria OASAS Guidelines: Admission for Medically Managed Detox: Requires at least one of the followin. CIWA greater than 12 2. Seizures within the past 24 hours 3. Delirium tremens within the past 24 hours 4. Hallucinations within the past 24 hours 5. Acute intervention needed for co occurring medical disorder 6. Acute intervention needed for co occurring psychiatric disorder 7. Severe withdrawal that cannot be handled at a lower level of care (continued vomiting, continued diarrhea, abnormal vital signs) requiring intravenous medication and/or fluids 8. Admission ROS [facility]HS - HPI Chief Complaint: DEPENDENT ON ETOH ONLY Allergies/Adverse Reactions: Allergies Allergy/AdvReac Type Severity Reaction Status Date / Time No Known Allergies Allergy Verified 12/26/18 18:52 History of Present Illness: THE PT. IS REQUESTING ADMISSION TO THE DETOX UNIT AND CAME FOR H AND PE Exam Limitations: No Limitations - Ebola screening Have you traveled outside of the country in the last 21 days: No Have you had contact with anyone from an Ebola affected area: No Have you been sick,other than usual withdrawal symptoms: No Do you have a fever: No - Review of Systems Constitutional: See HPI, Malaise, Weakness EENT: reports: See HPI Respiratory: reports: See HPI Cardiac: reports: See HPI GI: reports: See HPI, Nausea, Vomiting, Abdominal cramping : reports: See HPI Musculoskeletal: reports: See HPI, Muscle Pain, Muscle Weakness Integumentary: reports: See HPI Neuro: reports: See HPI, Headache, Tremors, Weakness Endocrine: reports: See HPI Hematology: reports: See HPI, Anemia Psychiatric: reports: Judgement Intact, Orientated x3, Anxious, Depressed Patient History - Patient Medical History Hx Anemia: Yes Hx Asthma: No Hx Chronic Obstructive Pulmonary Disease (COPD): No Hx Cancer: No Hx Cardiac Disorders: No Hx Congestive Heart Failure: No Hx Hypertension: No Hx Hypercholesterolemia: No Hx Pacemaker: No HX Cerebrovascular Accident: No Hx Seizures: No Hx Dementia: No Hx Diabetes: No Hx Gastrointestinal Disorders: Yes (Gastritis) Hx Liver Disease: No Hx Genitourinary Disorders: No Hx Sexually Transmitted Disorders: No Hx Renal Disease (ESRD): No Hx Thyroid Disease: No Hx Human Immunodeficiency Virus (HIV): No Hx Hepatitis C: Yes Hx Depression: No Hx Suicide Attempt: No Hx Bipolar Disorder: No Hx Schizophrenia: No - Patient Surgical History Past Surgical History: No Hx Neurologic Surgery: No Hx Cataract Extraction: No Hx Cardiac Surgery: No Hx Lung Surgery: No Hx Breast Surgery: No Hx Breast Biopsy: No Hx Abdominal Surgery: No Hx Appendectomy: No Hx Cholecystectomy: No Hx Genitourinary Surgery: No Hx Section: No Hx Orthopedic Surgery: No Hx Hysterectomy: No Anesthesia Reaction: No - PPD History Date: 11/07/18 Results: 0mm - Reproductive History Last Menstrual Period: 11/02/18 Patient : No - Smoking Cessation Smoking history: Current some day smoker Have you smoked in the past 12 months: Yes Aproximately how many cigarettes per day: 1 Cigars Per Day: 0 Hx Chewing Tobacco Use: No Initiated information on smoking cessation: Yes 'Breaking Loose' booklet given: 12/26/18 - Substance & Tx. History Hx Alcohol Use: Yes Hx Substance Use: No Substance Use Type: Alcohol Hx Substance Use Treatment: Yes - Substances abused Alcohol Substance route: Oral Frequency: Daily Amount used: 2/24 oz wine Age of first use: 14 Date of last use: 12/26/18 Family Disease History - Family Disease History Family Disease History: Heart Disease: Father (ETOH DEPENDENCE ), Other: Father Admission Physical Exam BHS - Vital Signs Vital Signs: Vital Signs - 24 hr 12/26/18 12/26/18 18:55 19:51 Temperature 98.2 F 98.2 F Pulse Rate 101 H 101 H Respiratory 18 18 Rate Blood Pressure 122/87 122/87 - Physical General Appearance: Yes: No Apparent Distress, Nourished, Appropriately Dressed , Alcohol on Breath, Tremorous, Sweating, Anxious HEENTM: Yes: Hearing grossly Normal, Normocephalic, Normal Voice, GARY, Pharynx Normal Respiratory: Yes: Chest Non-Tender, Lungs Clear, Normal Breath Sounds, No Respiratory Distress, No Accessory Muscle Use Neck: Yes: No masses,lesions,Nodules, Supple, Trachea in good position Breast: Yes: Breast Exam Deferred, Axillae without masses Cardiology: Yes: Regular Rhythm, S1, S2, Tachycardia Abdominal: Yes: Normal Bowel Sounds, Non Tender, Soft, Protuberent Back: Yes: Normal Inspection Musculoskeletal: Yes: full range of Motion, Gait Steady, Pelvis Stable, Muscle Pain, Muscle weakness Extremities: Yes: Normal Capillary Refill, Non-Tender, Tremors Neurological: Yes: veterans' coordinator II-XII NML intact, Fully Oriented, Alert, Motor Strength 5/5, Normal Response, Depressed Affect Integumentary: Yes: Normal Color, Warm, Moist Lymphatic: Yes: Within Normal Limits - Diagnostic (1) Hepatitis C Current Visit: Yes Status: Chronic (2) Alcohol dependence with uncomplicated withdrawal Current Visit: No Status: Chronic (3) Gastritis Current Visit: No Status: Chronic Qualifiers: Gastritis type: unspecified gastritis (4) Iron deficiency anemia Current Visit: No Status: Chronic Qualifiers: Iron deficiency anemia type: unspecified iron deficiency Qualified Code(s) : D50.9 - Iron deficiency anemia, unspecified Cleared for Admission S - Detox or Rehab [facility] Level of Care: Medically Supervised Breathalyzer - Breathalyzer Breathalyzer: 0.140 POC Urine test - Test device test lot number: [id number] Expiration date: 05/29/20 - Control test control: Yes - Result Urine Test Results: Negative - NO line present Urine Drug Screen - Test Device Lot number: [id number] Expiration date: 07/29/20 - Control Is test valid?: Yes - Results Drug screen NEGATIVE: Yes Inpatient Rehab Admission - Rehab Decision to Admit Inpatient rehab admission?: No
[2018-12-26] MEDS ORDERED: chlordiazePOXIDE HCL 25 MG CAPSULE PO ONE (20:17)
[2018-12-26] MEDS ORDERED: hydrOXYzine PAMOATE 25 MG CAPSULE (FP) PO PRN (20:17)
[2018-12-26] MEDS ORDERED: ACETAMINOPHEN 325 MG TABLET (FP) PO PRN ×2 (20:17)
[2018-12-26] MEDS ORDERED: BISMUTH SUBSALICYLATE 524 MG/30 ML UD PO PRN (20:17)
[2018-12-26] MEDS ORDERED: MAGNESIUM HYDROX 2400MG/30ML ORAL SUSPENSION 30 ML CUP PO PRN (20:17)
[2018-12-26] MEDS ORDERED: NICOTINE POLACRILEX 2 MG GUM BUC PRN (20:17)
[2018-12-26] MEDS ORDERED: MAG HYDROX/AL HYDROX/SIMETH 30 ML UNIT-DOSE CUP PO PRN (20:17)
[2018-12-26] MEDS ORDERED: MAGNESIUM CITRATE 300 ML BOTTLE PO PRN (20:17)
[2018-12-26] MEDS ORDERED: MENTHOL/PHENOL 1 EACH UD MM PRN (20:17)
[2018-12-26] MEDS: chlordiazePOXIDE HCL 25 MG CAPSULE PO SCH (21:50)
[2018-12-26] MEDS: THIAMINE HCL 100 MG TABLET (FP) PO SCH (21:50)
[2018-12-26] MEDS: MELATONIN 5 MG TABLETS PO PRN (21:50)
[2018-12-27] MEDS: chlordiazePOXIDE HCL 25 MG CAPSULE PO SCH ×2 (05:26→12:32)
[2018-12-27] MEDS: IBUPROFEN 400 MG TABLET (FP) PO PRN ×2 (07:47→21:26)
[2018-12-27 09:50] LABS: HEMATOCRIT 38.1 % (32.4-45.2); HEMOGLOBIN 12.7 GM/dL (10.7-15.3); MCH 28.2 pg (25.7-33.7); MCHC 33.4 g/dl (32.0-36.0); MEAN CELL VOLUME 84.4 fl (80-96); MEAN PLT VOLUME 8.8 fl (7.5-11.1); PLATELET COUNT 224 K/MM3 (134-434); RBC 4.51 M/mm3 (3.60-5.2); RDW 15.2 % (11.6-15.6); WHITE BLOOD COUNT 6.6 K/mm3 (4.0-10.0)
[2018-12-27 10:04] LABS: ALBUMIN 3.8 g/dl (3.4-5.0); ALK PHOS 62 U/L (45-117); ANION GAP 9 MMOL/L (8-16); BILIRUBIN,TOTAL 0.9 mg/dL (0.2-1); BLOOD UREA NITROGEN 12 mg/dL (7-18); CALCIUM 9.4 mg/dL (8.5-10.1); CHLORIDE 103 mmol/L (98-107); CO2 27 mmol/L (21-32); CREATININE 0.5 mg/dL (0.55-1.3); GLUCOSE,RANDOM 80 mg/dL (74-106); POTASSIUM 3.8 mmol/L (3.5-5.1); SGOT/AST 18 U/L (15-37); SGPT/ALT 21 U/L (13-61); SODIUM 139 mmol/L (136-145); TOT PROT 7.2 g/dl (6.4-8.2)
[2018-12-27] MEDS: PRENATAL VITAMINS W/ FOLIC ACID TABLET (FP) PO SCH (10:39)
--- NOTE | 2018-12-27 13:16 | PN ---
S CIWA - CIWA Score Nausea/Vomitin-Mild Nausea/No Vomiting Muscle Tremors: 3 Anxiety: 1-Mildly Anxious Agitation: 3 Paroxysmal Sweats: 1-Minimal Palms Moist Orientation: 2-Disoriented Date<2 days Tacttile Disturbances: 1-Very Mild Itch/Numbness Auditory Disturbances: 0-None Visual Disturbances: 0-None Headache: 2-Mild CIWA-Ar Total Score: 14 S Progress Note (SOAP) Subjective: doing well with librium alcohol detox protocol resting on bed can tolerate food and fluid well Objective: 12/27/18 13:16 Vital Signs Temperature 97.8 F 12/27/18 09:19 Pulse Rate 89 12/27/18 09:19 Respiratory Rate 18 12/27/18 09:19 Blood Pressure 120/75 12/27/18 09:19 O2 Sat by Pulse Oximetry (%) Laboratory Last Values WBC 6.6 K/mm3 (4.0-10.0) 12/27/18 07:00 RBC 4.51 M/mm3 (3.60-5.2) 12/27/18 07:00 Hgb 12.7 GM/dL (10.7-15.3) 12/27/18 07:00 Hct 38.1 % (32.4-45.2) 12/27/18 07:00 MCV 84.4 fl (80-96) 12/27/18 07:00 MCH 28.2 pg (25.7-33.7) 12/27/18 07:00 MCHC 33.4 g/dl (32.0-36.0) 12/27/18 07:00 RDW 15.2 % (11.6-15.6) 12/27/18 07:00 Plt Count 224 K/MM3 (134-434) 12/27/18 07:00 MPV 8.8 fl (7.5-11.1) 12/27/18 07:00 Sodium 139 mmol/L (136-145) 12/27/18 07:00 Potassium 3.8 mmol/L (3.5-5.1) 12/27/18 07:00 Chloride 103 mmol/L (98-107) 12/27/18 07:00 Carbon Dioxide 27 mmol/L (21-32) 12/27/18 07:00 Anion Gap 9 MMOL/L (8-16) 12/27/18 07:00 BUN 12 mg/dL (7-18) 12/27/18 07:00 Creatinine 0.5 mg/dL (0.55-1.3) L 12/27/18 07:00 Creat Clearance w eGFR 131.69 (>60) 12/27/18 07:00 Random Glucose 80 mg/dL (74-106) 12/27/18 07:00 Calcium 9.4 mg/dL (8.5-10.1) 12/27/18 07:00 Total Bilirubin 0.9 mg/dL (0.2-1) 12/27/18 07:00 AST 18 U/L (15-37) 12/27/18 07:00 ALT 21 U/L (13-61) 12/27/18 07:00 Alkaline Phosphatase 62 U/L (45-117) 12/27/18 07:00 Total Protein 7.2 g/dl (6.4-8.2) 12/27/18 07:00 Albumin 3.8 g/dl (3.4-5.0) 12/27/18 07:00 RPR Titer Nonreactive (NONREACTIVE) 12/27/18 07:00 lab noted Assessment: 12/27/18 13:17 alcohol withdrawal sx Plan: continue detox
[2018-12-27] MEDS: THIAMINE HCL 100 MG TABLET (FP) PO SCH (21:27)
[2018-12-27] MEDS: METHOCARBAMOL 500 MG TABLET PO PRN (21:27)
[2018-12-27] MEDS: chlordiazePOXIDE 5 MG CAPSULE PO SCH (21:27)
[2018-12-27] MEDS: MELATONIN 5 MG TABLETS PO PRN (21:28)
[2018-12-28] MEDS: chlordiazePOXIDE 5 MG CAPSULE PO SCH ×2 (06:23→13:38)
[2018-12-28] MEDS: PRENATAL VITAMINS W/ FOLIC ACID TABLET (FP) PO SCH (10:21)
[2018-12-28] MEDS: chlordiazePOXIDE HCL 10 MG CAPSULE PO PRN ×2 (10:23→16:48)
--- NOTE | 2018-12-28 12:55 | PN ---
[facility] CIWA - CIWA Score Nausea/Vomitin-Mild Nausea/No Vomiting Muscle Tremors: 2 Anxiety: 1-Mildly Anxious Agitation: 4-Moderately Restless Paroxysmal Sweats: 1-Minimal Palms Moist Orientation: 0-Oriented Tacttile Disturbances: 0-None Auditory Disturbances: 0-None Visual Disturbances: 0-None Headache: 1-Very Mild CIWA-Ar Total Score: 10 S Progress Note (SOAP) Subjective: restlessness guarded hesitate to discuss alcohol misuse feeling tired wants to sleep Objective: 12/28/18 12:58 Vital Signs Temperature 99.2 F 12/28/18 09:32 Pulse Rate 91 H 12/28/18 09:32 Respiratory Rate 18 12/28/18 09:32 Blood Pressure 121/76 12/28/18 09:32 O2 Sat by Pulse Oximetry (%) Laboratory Last Values WBC 6.6 K/mm3 (4.0-10.0) 12/27/18 07:00 RBC 4.51 M/mm3 (3.60-5.2) 12/27/18 07:00 Hgb 12.7 GM/dL (10.7-15.3) 12/27/18 07:00 Hct 38.1 % (32.4-45.2) 12/27/18 07:00 MCV 84.4 fl (80-96) 12/27/18 07:00 MCH 28.2 pg (25.7-33.7) 12/27/18 07:00 MCHC 33.4 g/dl (32.0-36.0) 12/27/18 07:00 RDW 15.2 % (11.6-15.6) 12/27/18 07:00 Plt Count 224 K/MM3 (134-434) 12/27/18 07:00 MPV 8.8 fl (7.5-11.1) 12/27/18 07:00 Sodium 139 mmol/L (136-145) 12/27/18 07:00 Potassium 3.8 mmol/L (3.5-5.1) 12/27/18 07:00 Chloride 103 mmol/L (98-107) 12/27/18 07:00 Carbon Dioxide 27 mmol/L (21-32) 12/27/18 07:00 Anion Gap 9 MMOL/L (8-16) 12/27/18 07:00 BUN 12 mg/dL (7-18) 12/27/18 07:00 Creatinine 0.5 mg/dL (0.55-1.3) L 12/27/18 07:00 Creat Clearance w eGFR 131.69 (>60) 12/27/18 07:00 Random Glucose 80 mg/dL (74-106) 12/27/18 07:00 Calcium 9.4 mg/dL (8.5-10.1) 12/27/18 07:00 Total Bilirubin 0.9 mg/dL (0.2-1) 12/27/18 07:00 AST 18 U/L (15-37) 12/27/18 07:00 ALT 21 U/L (13-61) 12/27/18 07:00 Alkaline Phosphatase 62 U/L (45-117) 12/27/18 07:00 Total Protein 7.2 g/dl (6.4-8.2) 12/27/18 07:00 Albumin 3.8 g/dl (3.4-5.0) 12/27/18 07:00 RPR Titer Nonreactive (NONREACTIVE) 12/27/18 07:00 lab noted Assessment: 12/28/18 12:58 alcohol withdrawal sx Plan: continue detox encourage ventilate feelings and concerns
[2018-12-28] MEDS: IBUPROFEN 400 MG TABLET (FP) PO PRN (13:39)
[2018-12-28] MEDS ORDERED: chlordiazePOXIDE HCL 10 MG CAPSULE PO PRN (21:00)
[2018-12-28] MEDS: MELATONIN 5 MG TABLETS PO PRN (22:01)
[2018-12-28] MEDS: THIAMINE HCL 100 MG TABLET (FP) PO SCH (22:01)
[2018-12-28] MEDS: chlordiazePOXIDE HCL 10 MG CAPSULE PO SCH (22:01)
[2018-12-29] MEDS: METHOCARBAMOL 500 MG TABLET PO PRN (01:18)
[2018-12-29] MEDS: chlordiazePOXIDE HCL 10 MG CAPSULE PO SCH (05:16)
[2018-12-29] MEDS: PRENATAL VITAMINS W/ FOLIC ACID TABLET (FP) PO SCH (09:22)
[2018-12-29 09:24] VITALS: BP 113/72; PULSE 88; TEMP 98.6
--- NOTE | 2018-12-29 12:59 | DS ---
[facility] Detox Discharge Summary Admission Date: 12/26/18 Discharge Date: 12/29/18 - History Present History: Alcohol Dependence Additional Comments: 48 years old female admitted on 12/26/18 for alcohol withdrawal stabilization feeling better today alert no acute distress denies suicidal ideation patient wants to go home to see her children patient called home "some one at home open the door" aftercare community self help support group and meeting Pertinent Past History: bring in - Physical Exam Results Vital Signs: Vital Signs Temperature 98.6 F 12/29/18 09:23 Pulse Rate 88 12/29/18 09:23 Respiratory Rate 18 12/29/18 09:23 Blood Pressure 113/72 12/29/18 09:23 O2 Sat by Pulse Oximetry (%) Pertinent Admission Physical Exam Findings: alcohol withdrawal sx Laboratory Last Values WBC 6.6 K/mm3 (4.0-10.0) 12/27/18 07:00 RBC 4.51 M/mm3 (3.60-5.2) 12/27/18 07:00 Hgb 12.7 GM/dL (10.7-15.3) 12/27/18 07:00 Hct 38.1 % (32.4-45.2) 12/27/18 07:00 MCV 84.4 fl (80-96) 12/27/18 07:00 MCH 28.2 pg (25.7-33.7) 12/27/18 07:00 MCHC 33.4 g/dl (32.0-36.0) 12/27/18 07:00 RDW 15.2 % (11.6-15.6) 12/27/18 07:00 Plt Count 224 K/MM3 (134-434) 12/27/18 07:00 MPV 8.8 fl (7.5-11.1) 12/27/18 07:00 Sodium 139 mmol/L (136-145) 12/27/18 07:00 Potassium 3.8 mmol/L (3.5-5.1) 12/27/18 07:00 Chloride 103 mmol/L (98-107) 12/27/18 07:00 Carbon Dioxide 27 mmol/L (21-32) 12/27/18 07:00 Anion Gap 9 MMOL/L (8-16) 12/27/18 07:00 BUN 12 mg/dL (7-18) 12/27/18 07:00 Creatinine 0.5 mg/dL (0.55-1.3) L 12/27/18 07:00 Creat Clearance w eGFR 131.69 (>60) 12/27/18 07:00 Random Glucose 80 mg/dL (74-106) 12/27/18 07:00 Calcium 9.4 mg/dL (8.5-10.1) 12/27/18 07:00 Total Bilirubin 0.9 mg/dL (0.2-1) 12/27/18 07:00 AST 18 U/L (15-37) 12/27/18 07:00 ALT 21 U/L (13-61) 12/27/18 07:00 Alkaline Phosphatase 62 U/L (45-117) 12/27/18 07:00 Total Protein 7.2 g/dl (6.4-8.2) 12/27/18 07:00 Albumin 3.8 g/dl (3.4-5.0) 12/27/18 07:00 RPR Titer Nonreactive (NONREACTIVE) 12/27/18 07:00 lab noted - Treatment Hospital Course: Detox Protocol Followed, Detoxed Safely, Responded well, Discharged Condition Good, Rehab Referral Accepted Patient has Accepted a Rehab Referral to: community self help support group - Medication Discharge Medications: Ambulatory Orders NK [No Known Home Medication] 12/26/18 - Diagnosis (1) Alcohol dependence with uncomplicated withdrawal Status: Acute (2) Hepatitis C Status: Chronic Qualifiers: Viral hepatitis chronicity: unspecified Hepatic coma status: without hepatic coma Qualified Code(s): B19.20 - Unspecified viral hepatitis C without hepatic coma (3) Substance induced mood disorder Status: Suspected (4) Positive PPD Status: Resolved - AMA Did Patient Leave Against Medical Advice: No
== END 2018-12-29 10:00 | disposition home or self-care (01) | DRG 775 ==
LOC: YASAS 16:30 → Y3N 20:44
PROVIDERS: ADMIT Surgery; ATTEND Surgery
PROC: HZ2ZZZZ Detoxification Services for Substance Abuse Treatment (ICD-10-PCS; principal; 2018-12-26)
DX: F10.230 Alcohol dependence with withdrawal, uncomplicated (principal); F19.24 Other psychoactive substance dependence with psychoactive substance-induced mood disorder; D50.9 Iron deficiency anemia, unspecified; K29.70 Gastritis, unspecified, without bleeding; B18.2 Chronic viral hepatitis C; R76.11 Nonspecific reaction to tuberculin skin test without active tuberculosis
CPT/HCPCS: 36415; 80053; 85027; 86593

== ENCOUNTER 2019-04-07 12:24 | Inpatient (IN) | payer OTHER | END 2019-04-11 09:16 | disposition home or self-care (01) | LOC: YASAS 12:24 → Y3N 15:09 ==

== ENCOUNTER 2020-02-23 15:43 | Inpatient (IN) | payer OTHER ==
--- NOTE | 2020-02-23 16:02 | BHS.RME ---
Substance Use & Tx History - Substance Use History Alcohol Substance amount: 1 pt vodka Frequency of use: Daily Substance route: Oral Date of Last Use: 02/23/20 - Last Treatment Date of last treatment: 04/07/19 to 04/11/19 Treatment type: Medical (Transfer to ) Where was last treatment: Detox ([facility] detox) Physical/Psych/Mental Status - Behavior General Behavior: Increased activity (restlessness, agitation) Eye Contact: Normal - Cooperativeness Cooperativeness: Cooperative - Thinking Thought Processes: Logical Thought content: Future oriented - Physical Health Problems Is patient presently having any pain?: Yes (Abdominal pain) Does patient presently have any injuries (include location): No Does patient currently have a fever: No Is patient : No CIWA Nausea/Vomitin-Int. Nausea w/Dry Heave Muscle Tremors: 3 Anxiety: 3 Agitation: 4-Moderately Restless Paroxysmal Sweats: 1-Minimal Palms Moist Orientation: 0-Oriented Tacttile Disturbances: 0-None Auditory Disturbances: 0-None Visual Disturbances: 0-None Headache: 0-None Present CIWA-Ar Total Score: 15 Treatment Recommendation - Level of Care Level of Care: Acute Medical (ER Evaluation for Generalized abdominal pain Detox recommended ELAINE 0.166 thereafter LUNGS:CTA,PEPPER. CARDIAC:S1S2,tachycardic ABD:++fatty, decreased bs,soft,not distended report given to Dr. Jurado)
--- NOTE | 2020-02-24 00:37 | HP ---
CIWA Score Nausea/Vomitin-Int. Nausea w/Dry Heave Muscle Tremors: 4-Moderate,w/Arms Extend Anxiety: 3 Agitation: 4-Moderately Restless Paroxysmal Sweats: 1-Minimal Palms Moist Orientation: 0-Oriented Tacttile Disturbances: 0-None Auditory Disturbances: 0-None Visual Disturbances: 0-None Headache: 2-Mild CIWA-Ar Total Score: 18 - Admission Criteria [facility] Guidelines: Admission for Medically Managed Detox: Requires at least one of the followin. CIWA greater than 12 2. Seizures within the past 24 hours 3. Delirium tremens within the past 24 hours 4. Hallucinations within the past 24 hours 5. Acute intervention needed for co occurring medical disorder 6. Acute intervention needed for co occurring psychiatric disorder 7. Severe withdrawal that cannot be handled at a lower level of care (continued vomiting, continued diarrhea, abnormal vital signs) requiring intravenous medication and/or fluids 8. Patient presents the following: CIWA greater than 12 Admission Criteria Met: Admission criteria met Admitting History and Physical - Past Medical History ...LMP: 03/23/19 - Smoking History Smoking history: Current some day smoker Have you smoked in the past 12 months: Yes Aproximately how many cigarettes per day: 1 - Alcohol/Substance Use Hx Alcohol Use: Yes (see history) Admission [facility] Chief Complaint: HERE FOR ALCOHOL DETOX. C/O WITHDRAWAL SX'S Allergies/Adverse Reactions: Allergies Allergy/AdvReac Type Severity Reaction Status Date / Time No Known Allergies Allergy Verified 02/23/20 17:18 History of Present Illness: HERE FOR ALCOHOL DETOX. SELF REFERRED. KNOWN TO PROGRAM. LAST HERE 04/07/19- 04/11/19. REPORTS CLEAN TIME SINCE RELAPSING 1 WEEK AGO. CLIENT RETURNS FROM [facility] AFTER BEING SENT THERE FOR ABD PAIN AND CONSTIPATION. S/P MIRALAX WITH + BM. CLEARED AND RETURNED FOR DETOX. REPORTS DAILY ALCOHOL INTAKE.+ EYE [employer]. LAST DRINK A FEW HOURS AGO. DUE TO WITHDRAWAL SX'S. . DENIES HX/O BLACK OUTS, SEIZURES, DT'S. LIVES WITH FAMILY, EMPLOYED- HOUSE KEEPING, DENIES LEGALS. Exam Limitations: No Limitations, Language Barrier (TELUG[place] SPEAKING ABLE TO MAKE NEEDS KNOWN) - Ebola screening Have you traveled outside of the country in the last 21 days: No Have you had contact with anyone from an Ebola affected area: No Have you been sick,other than usual withdrawal symptoms: No Do you have a fever: No - Review of Systems Constitutional: Chills, Loss of Appetite, Malaise, Night Sweats, Changes in sleep EENT: reports: No Symptoms Reported Respiratory: reports: No Symptoms reported Cardiac: reports: No Symptoms Reported GI: reports: Constipated, Poor Appetite, Poor Fluid Intake : reports: No Symptoms Reported Musculoskeletal: reports: No Symptoms Reported Integumentary: reports: No Symptoms Reported Neuro: reports: Headache, Tremors Endocrine: reports: No Symptoms Reported Hematology: reports: No Symptoms Reported Psychiatric: reports: Orientated x3, Anxious Other Systems: Reviewed and Negative Patient History - Patient Medical History Hx Anemia: Yes Hx Asthma: No Hx Chronic Obstructive Pulmonary Disease (COPD): No Hx Cancer: No Hx Cardiac Disorders: No Hx Congestive Heart Failure: No Hx Hypertension: No Hx Hypercholesterolemia: No Hx Pacemaker: No HX Cerebrovascular Accident: No Hx Seizures: No Hx Dementia: No Hx Diabetes: No Hx Gastrointestinal Disorders: Yes (Gastritis) Hx Liver Disease: No Hx Genitourinary Disorders: No Hx Sexually Transmitted Disorders: No Hx Renal Disease (ESRD): No Hx Thyroid Disease: No Hx Human Immunodeficiency Virus (HIV): No Hx Hepatitis C: Yes (treated successfully in [facility]) Hx Depression: Yes Hx Suicide Attempt: No Hx Bipolar Disorder: No Hx Schizophrenia: No - Patient Surgical History Past Surgical History: No Hx Neurologic Surgery: No Hx Cataract Extraction: No Hx Cardiac Surgery: No Hx Lung Surgery: No Hx Breast Surgery: No Hx Breast Biopsy: No Hx Abdominal Surgery: No Hx Appendectomy: No Hx Cholecystectomy: No Hx Genitourinary Surgery: No Hx Section: No Hx Orthopedic Surgery: No Hx Hysterectomy: No Anesthesia Reaction: No - PPD History Previous Implant?: Yes Documented Results: Negative w/proof Implanted On Prior R Admission?: Yes Date: 11/07/18 Results: 0mm PPD to be Administered?: Yes - Reproductive History Patient is a Female of Child Bearing Age (11 -55 yrs old): Yes Last Menstrual Period: 02/10/20 Patient : No ([facility] [place]) - Smoking Cessation Smoking history: Current every day smoker Have you smoked in the past 12 months: Yes Aproximately how many cigarettes per day: 2 Cigars Per Day: 0 Hx Chewing Tobacco Use: No Initiated information on smoking cessation: Yes 'Breaking Loose' booklet given: 02/24/20 - Substance & Tx. History Hx Alcohol Use: Yes Hx Substance Use: Yes Substance Use Type: Alcohol Hx Substance Use Treatment: Yes ([facility]) - Substances abused Alcohol Other (specify): VODKA Substance route: Oral Frequency: Daily Amount used: 1 PINT Age of first use: 39 Date of last use: 02/23/20 Admission Physical Exam [facility] - Physical General Appearance: Yes: Moderate Distress, Tremorous, Sweating, Anxious HEENTM: Yes: EOMI, Normocephalic, Normal Voice, GARY, Pharynx Normal Respiratory: Yes: Chest Non-Tender, Lungs Clear, Normal Breath Sounds, No Respiratory Distress, No Accessory Muscle Use Neck: Yes: No masses,lesions,Nodules, Supple, Trachea in good position Breast: Yes: Breasts Symetrical Cardiology: Yes: Regular Rhythm, Regular Rate, S1, S2 Abdominal: Yes: Normal Bowel Sounds, Non Tender, Soft, Protuberent Genitourinary: Yes: Within Normal Limits Back: Yes: Normal Inspection Musculoskeletal: Yes: full range of Motion, Gait Steady Extremities: Yes: Normal Capillary Refill, Normal Range of Motion, Non-Tender, Tremors Neurological: Yes: Fully Oriented, Alert, Motor Strength 5/5, Depressed Affect Integumentary: Yes: Warm, Clammy, Other (FLUSHED) Lymphatic: Yes: Within Normal Limits - Diagnostic (1) Alcohol dependence with uncomplicated withdrawal Current Visit: Yes Status: Acute (2) Constipation Current Visit: Yes Status: Acute Qualifiers: Constipation type: unspecified constipation type Qualified Code(s): K59.00 - Constipation, unspecified (3) Alcohol induced insomnia Current Visit: Yes Status: Chronic (4) Depression Current Visit: Yes Status: Chronic Qualifiers: Depression Type: unspecified Qualified Code(s): F32.9 - Major depressive disorder, single episode, unspecified Cleared for Admission [facility] - Detox or Rehab [facility] Level of Care: Medically Managed Detox Regimen/Protocol: Octaviano Santa for Rehab Admission: No Breathalyzer - Breathalyzer Breathalyzer: 0.010 POC Urine test - Test device test lot number: [id number] Expiration date: 05/29/20 - Control test control: Yes Urine Drug Screen - Test Device Lot number: [id number] Expiration date: 12/27/20 - Control Is test valid?: Yes - Results Drug screen NEGATIVE: Yes Inpatient Rehab Admission - Rehab Decision to Admit Inpatient rehab admission?: No
[2020-02-24] MEDS ORDERED: MAG HYDROX/AL HYDROX/SIMETH 30 ML UNIT-DOSE CUP PO PRN (00:50)
[2020-02-24] MEDS ORDERED: MENTHOL/PHENOL 1 EACH UD MM PRN (00:50)
[2020-02-24] MEDS ORDERED: P-EPHED 60MG/TRIPROLIDI 2.5MG TABLET PO PRN (00:50)
[2020-02-24] MEDS ORDERED: MAGNESIUM HYDROX 2400MG/30ML ORAL SUSPENSION 30 ML CUP PO PRN (00:50)
[2020-02-24] MEDS ORDERED: BISMUTH SUBSALICYLATE 524 MG/30 ML UD PO PRN (00:50)
[2020-02-24] MEDS ORDERED: MAGNESIUM CITRATE 300 ML BOTTLE PO PRN (00:50)
[2020-02-24] MEDS ORDERED: ACETAMINOPHEN 325 MG TABLET (FP) PO PRN ×2 (00:50)
[2020-02-24] MEDS ORDERED: ONDANSETRON *ODT* 4 MG TABLET SL ONE (00:50)
[2020-02-24] MEDS ORDERED: chlordiazePOXIDE HCL 25 MG CAPSULE PO PRN (00:50)
[2020-02-24] MEDS ORDERED: guaiFENesin 200 MG/10 ML 10 ML UNIT-DOSE CUPS PO PRN (00:50)
[2020-02-24] MEDS ORDERED: DICYCLOMINE HCL 10 MG CAPSULE PO PRN (00:50)
[2020-02-24] MEDS ORDERED: NICOTINE POLACRILEX 2 MG GUM BUC PRN (00:50)
[2020-02-24] MEDS ORDERED: IBUPROFEN 400 MG TABLET (FP) PO PRN (00:50)
[2020-02-24] MEDS ORDERED: METHOCARBAMOL 500 MG TABLET PO PRN (00:50)
[2020-02-24 01:00] VITALS: BMI 36.8
[2020-02-24] MEDS: MELATONIN 5 MG TABLETS PO SCH ×2 (01:42→22:30)
[2020-02-24] MEDS: chlordiazePOXIDE HCL 25 MG CAPSULE PO SCH ×4 (05:45→22:30)
[2020-02-24] MEDS: hydrOXYzine PAMOATE 25 MG CAPSULE (FP) PO SCH ×5 (05:46→22:30)
[2020-02-24 09:47] LABS: URINE APPEARANCE Clear; URINE BILIRUBIN Negative (NEGATIVE); URINE COLOR Yellow; URINE GLUCOSE (UA) Negative (NEGATIVE); URINE KETONE 4+ (NEGATIVE); URINE LEUK ESTERASE Negative (NEGATIVE); URINE NITRITE Negative (NEGATIVE); URINE PROTEIN Trace (NEGATIVE); URINE UROBILINOGEN 0.2 mg/dL (0.2-1.0)
[2020-02-24] MEDS: PRENATAL VITAMINS W/ FOLIC ACID TABLET (FP) PO SCH (10:16)
[2020-02-24] MEDS: DOCUSATE SODIUM 100 MG CAPSULE (FP) PO SCH (10:16)
[2020-02-24] MEDS: NICOTINE 7 MG/24 HOURS TOPICAL PATCH TD SCH (10:17)
[2020-02-24] MEDS: POLYETHYLENE GLYCOL 3350 119 GM BTL PO SCH (10:31)
--- NOTE | 2020-02-24 11:06 | CONSULT ---
[facility] Psychiatric Consult - Data Date of interview: 02/24/20 Admission source: [facility] Identifying data: Patient is a 49 year old female, mother of three, employed, and domiciled. This is one of multiple admissions for patient. Patient admitted to detox for alcohol dependence. Substance Abuse History: Smoking Cessation. Smoking history: Current every day smoker. Have you smoked in the past 12 months: Yes. Aproximately how many cigarettes per day: 2. Cigars Per Day: 0. Hx Chewing Tobacco Use: No. Initiated information on smoking cessation: Yes. 'Breaking Loose' booklet given: 02/24/20. - Substance & Tx. History. Hx Alcohol Use: Yes. Hx Substance Use: Yes. Substance Use Type: Alcohol. Hx Substance Use Treatment: Yes ([facility]). - Substances abused. Alcohol. Other (specify): VODKA. Substance route: Oral. Frequency: Daily. Amount used: 1 PINT. Age of first use: 39. Date of last use: 02/23/20 Medical History: hepatitis C (treated), anemia, arthritis, Gastritis Psychiatric History: Patient denies history of psychiatric hospitalization, outpatient care, and suicide attempt. Physical/Sexual Abuse/Trauma History: denies. Mental Status Exam - Mental Status Exam Alert and Oriented to: Time, Place, Person Cognitive Function: Good Patient Appearance: Well Groomed Mood: Withdrawn Affect: Mood Congruent Patient Behavior: Appropriate, Cooperative Speech Pattern: Appropriate Voice Loudness: Normal Thought Process: Intact, Goal Oriented Thought Disorder: Not Present Hallucinations: Denies Suicidal Ideation: Denies Homicidal Ideation: Denies Insight/Judgement: Poor Sleep: Fair Appetite: Fair Muscle strength/Tone: Normal Gait/Station: Other (Did not observe gait.) Psychiatric Findings - Problem List ([place] 1, 2,3) (1) Alcohol dependence with uncomplicated withdrawal Current Visit: Yes Status: Acute - Initial Treatment Plan Initial Treatment Plan: Psychoeducation provided. Detoxification in progress. Observation.
--- NOTE | 2020-02-24 11:55 | PN ---
[facility] CIWA - CIWA Score Nausea/Vomitin-No Nausea/No Vomiting Muscle Tremors: 2 Anxiety: 3 Agitation: 0-Normal Activity Paroxysmal Sweats: 3 Orientation: 0-Oriented Tacttile Disturbances: 0-None Auditory Disturbances: 0-None Visual Disturbances: 0-None Headache: 2-Mild CIWA-Ar Total Score: 10 S Progress Note (SOAP) Subjective: c/o sweats, anxiety, headache, Objective: 02/24/20 11:45 Vital Signs 02/24/20 02/24/20 06:19 09:05 Temperature 98.2 F 97.1 F L Pulse Rate 88 68 Respiratory 18 18 Rate Blood Pressure 116/73 100/62 O2 Sat by Pulse 99 Oximetry (%) Laboratory Last Values Urine Color Yellow 02/24/20 07:55 Urine Appearance Clear 02/24/20 07:55 Urine pH 6.0 (5.0-8.0) 02/24/20 07:55 Ur Specific [place] 1.025 (1.010-1.035) 02/24/20 07:55 Urine Protein Trace (NEGATIVE) 02/24/20 07:55 Urine Glucose (UA) Negative (NEGATIVE) 02/24/20 07:55 Urine Ketones 4+ (NEGATIVE) H 02/24/20 07:55 Urine Blood 1+ (NEGATIVE) H 02/24/20 07:55 Urine Nitrite Negative (NEGATIVE) 02/24/20 07:55 Urine Bilirubin Negative (NEGATIVE) 02/24/20 07:55 Urine Urobilinogen 0.2 mg/dL (0.2-1.0) 02/24/20 07:55 Ur Leukocyte Esterase Negative (NEGATIVE) 02/24/20 07:55 Syphilis Serology Non-reactive (NONREACTIVE) 02/24/20 06:00 Labs noted. Assessment: 02/24/20 11:47 AOX3, in no acute respiratory distress. Full ROM, ambulating in the unit. Withdrawal symptoms. Plan: continue detox.
[2020-02-24] MEDS: THIAMINE HCL 100 MG TABLET (FP) PO SCH (22:30)
[2020-02-25] MEDS: hydrOXYzine PAMOATE 25 MG CAPSULE (FP) PO SCH ×5 (05:50→22:33)
[2020-02-25] MEDS: chlordiazePOXIDE HCL 25 MG CAPSULE PO SCH ×4 (05:50→22:35)
[2020-02-25] MEDS: PRENATAL VITAMINS W/ FOLIC ACID TABLET (FP) PO SCH (10:05)
[2020-02-25] MEDS: NICOTINE 7 MG/24 HOURS TOPICAL PATCH TD SCH (10:05)
[2020-02-25] MEDS: DOCUSATE SODIUM 100 MG CAPSULE (FP) PO SCH (10:05)
[2020-02-25] MEDS: POLYETHYLENE GLYCOL 3350 119 GM BTL PO SCH (10:27)
[2020-02-25] MEDS ORDERED: MAGNESIUM CITRATE 300 ML BOTTLE PO ONE (11:46)
--- NOTE | 2020-02-25 11:49 | PN ---
[facility] CIWA - CIWA Score Nausea/Vomitin-Mild Nausea/No Vomiting Muscle Tremors: 2 Anxiety: 2 Agitation: 0-Normal Activity Paroxysmal Sweats: 1-Minimal Palms Moist Orientation: 0-Oriented Tacttile Disturbances: 1-Very Mild Itch/Numbness Auditory Disturbances: 0-None Visual Disturbances: 0-None Headache: 0-None Present CIWA-Ar Total Score: 7 BHS Progress Note (SOAP) Subjective: 49 years old female admitted on 02/23/20 for alcohol withdrawal sx management treating with librium detox regiment report small hard stool x "days" received MOM around 6 am today "nothing happen" denies nausea no vomiting no abdominal pain citroma 300ml po x 1 Objective: 02/25/20 11:49 Vital Signs - 24 hr 02/24/20 02/24/20 02/24/20 12:39 16:59 20:59 Temperature 98.1 F 98.0 F 97.7 F Pulse Rate 102 H 71 82 Respiratory 18 16 16 Rate Blood Pressure 104/71 88/54 L 100/65 O2 Sat by Pulse 99 99 Oximetry (%) 02/25/20 02/25/20 02/25/20 00:30 03:30 06:25 Temperature 97.7 F Pulse Rate 61 Respiratory 18 18 16 Rate Blood Pressure 100/61 O2 Sat by Pulse 96 Oximetry (%) 02/25/20 08:37 Temperature 97.1 F L Pulse Rate 98 H Respiratory 18 Rate Blood Pressure 120/70 O2 Sat by Pulse Oximetry (%) Laboratory Tests 02/24/20 02/24/20 06:00 07:55 Urine Color Yellow Urine Appearance Clear Urine pH 6.0 Ur Specific [place] 1.025 Urine Protein Trace Urine Glucose (UA) Negative Urine Ketones 4+ H Urine Blood 1+ H Urine Nitrite Negative Urine Bilirubin Negative Urine Urobilinogen 0.2 Ur Leukocyte Esterase Negative Syphilis Serology Non-reactive a 02/25/20 11:51 02/25/20 11:51 ms freire was treated in ER for constipation on 02/23/20 medically clear transferred from ER to detox for alcohol detox Assessment: 02/25/20 11:52 alcohol withdrawal constipation Plan: librium regiment
[2020-02-25] MEDS: THIAMINE HCL 100 MG TABLET (FP) PO SCH (22:30)
[2020-02-25] MEDS: MELATONIN 5 MG TABLETS PO SCH (22:31)
[2020-02-26] MEDS ORDERED: chlordiazePOXIDE HCL 10 MG CAPSULE PO PRN
[2020-02-26] MEDS ORDERED: chlordiazePOXIDE HCL 10 MG CAPSULE PO SCH (05:00)
[2020-02-26] MEDS: hydrOXYzine PAMOATE 25 MG CAPSULE (FP) PO SCH ×2 (06:27→09:32)
[2020-02-26 09:12] VITALS: BP 110/65; PULSE 107; TEMP 97.9
[2020-02-26] MEDS: POLYETHYLENE GLYCOL 3350 119 GM BTL PO SCH (09:31)
[2020-02-26] MEDS: DOCUSATE SODIUM 100 MG CAPSULE (FP) PO SCH (09:31)
[2020-02-26] MEDS: PRENATAL VITAMINS W/ FOLIC ACID TABLET (FP) PO SCH (09:32)
[2020-02-26] MEDS: NICOTINE 7 MG/24 HOURS TOPICAL PATCH TD SCH (09:32)
--- NOTE | 2020-02-26 12:45 | DS ---
[facility] Detox Discharge Summary Admission Date: 02/24/20 Discharge Date: 02/26/20 - History Present History: Alcohol Dependence Additional Comments: 49 years old female admitted on 02/23/20 for alcohol withdrawal sx management treated with librium detox regiment had bowel movement today feeling better prefers to leave the detox unit and return to work tomorrow "I called my daughter" her daughter will pick her up seen by psychiatrist no medical intervention at this time alert oriented x 3 speech clearly coherently ambulating steady gaits cardiac s1s2 regular rate rhythm Vital Signs - 24 hr 02/25/20 02/25/20 02/26/20 16:46 20:50 06:00 Temperature 97.5 F L 97.8 F 97.3 F L Pulse Rate 96 H 99 H 87 Respiratory 16 16 18 Rate Blood Pressure 107/74 129/77 107/62 O2 Sat by Pulse 98 Oximetry (%) 02/26/20 02/26/20 06:30 08:46 Temperature 97.9 F Pulse Rate 107 H Respiratory 18 Rate Blood Pressure 110/65 O2 Sat by Pulse 97 Oximetry (%) denies chest pain no dizziness no shortness of breath respiratory clear lung sounds bilaterally on auscultation extremities full range of motion Pertinent Past History: time for discharge 46 minutes treatment team discussing the benefits of librium completion with the patient ms freire has ciwa 4 understands that aftercare to [facility] substance abuse facility ms freire prefers family support as alcohol recovery process - Physical Exam Results Vital Signs: Vital Signs Temperature 97.9 F 02/26/20 08:46 Pulse Rate 107 H 02/26/20 08:46 Respiratory Rate 18 02/26/20 08:46 Blood Pressure 110/65 02/26/20 08:46 O2 Sat by Pulse Oximetry (%) 97 02/26/20 06:30 Pertinent Admission Physical Exam Findings: alcohol withdrawal Laboratory Tests 02/24/20 02/24/20 06:00 07:55 Urine Color Yellow Urine Appearance Clear Urine pH 6.0 Ur Specific [place] 1.025 Urine Protein Trace Urine Glucose (UA) Negative Urine Ketones 4+ H Urine Blood 1+ H Urine Nitrite Negative Urine Bilirubin Negative Urine Urobilinogen 0.2 Ur Leukocyte Esterase Negative Syphilis Serology Non-reactive - Treatment Hospital Course: Detox Protocol Followed, Detoxed Safely, Responded well, Discharged Condition Good, Rehab Referral Accepted Patient has Accepted a Rehab Referral to: [facility] substance abuse recovery department - Medication Discharge Medications: Ambulatory Orders Docusate Sodium [Colace -] 100 mg PO DAILY #30 capsule 02/23/20 Polyethylene Glycol 3350 [Miralax 255 gm Btl -] 17 gm PO DAILY #1 bottle 02/23/20 - Diagnosis (1) Alcohol dependence with uncomplicated withdrawal Status: Acute (2) Constipation Status: Chronic Qualifiers: Constipation type: slow transit constipation Qualified Code(s): K59.01 - Slow transit constipation (3) Hepatitis C Status: Chronic Qualifiers: Viral hepatitis chronicity: unspecified Hepatic coma status: without hepatic coma Qualified Code(s): B19.20 - Unspecified viral hepatitis C without hepatic coma (4) Substance induced mood disorder Status: Suspected (5) Positive PPD Status: Resolved - AMA Did Patient Leave Against Medical Advice: No CIWA Score - CIWA Score Nausea/Vomitin-No Nausea/No Vomiting Muscle Tremors: 1-None Visible, but [place] Anxiety: 2 Agitation: 0-Normal Activity Paroxysmal Sweats: No Perspiration Orientation: 0-Oriented Tacttile Disturbances: 0-None Auditory Disturbances: 0-None Visual Disturbances: 0-None Headache: 0-None Present CIWA-Ar Total Score: 3
[2020-02-27] MEDS ORDERED: chlordiazePOXIDE HCL 10 MG CAPSULE PO SCH (05:00)
[2020-02-28] MEDS ORDERED: chlordiazePOXIDE HCL 10 MG CAPSULE PO ONE (05:00)
== END 2020-02-26 09:30 | disposition home or self-care (01) | DRG 775 ==
LOC: YASAS 15:43 → Y3N 02-24 01:05
PROVIDERS: ADMIT Allergy & Immunology; ATTEND Allergy & Immunology
PROC: HZ2ZZZZ Detoxification Services for Substance Abuse Treatment (ICD-10-PCS; principal; 2020-02-24)
DX: F10.230 Alcohol dependence with withdrawal, uncomplicated (principal); F10.282 Alcohol dependence with alcohol-induced sleep disorder; F17.210 Nicotine dependence, cigarettes, uncomplicated; F19.24 Other psychoactive substance dependence with psychoactive substance-induced mood disorder; F32.9 Major depressive disorder, single episode, unspecified; K59.01 Slow transit constipation; B19.20 Unspecified viral hepatitis C without hepatic coma; Z86.19 Personal history of other infectious and parasitic diseases
CPT/HCPCS: 81003; 86780; Q0162; U0003

== ENCOUNTER 2020-02-23 17:02 | Emergency (ER) | payer OTHER ==
[2020-02-23 17:18] VITALS: BP 120/61; PULSE 91; TEMP 98.7; BMI 29.2
[2020-02-23] MEDS ORDERED: LACTATED RINGERS SOLUTION 1000 ML INFUS.BAG IV ONE (17:59)
[2020-02-23] MEDS ORDERED: POLYETHYLENE GLYCOL 3350 119 GM BTL PO ONE (17:59)
[2020-02-23] MEDS ORDERED: ACETAMINOPHEN 1000 MG/100 ML VIAL (NON FORMULARY) IVPB ONE (18:00)
[2020-02-23] MEDS ORDERED: ACETAMINOPHEN INJECTION 100 ML IVPB ONE (18:14)
[2020-02-23 18:31] LABS: BASO % 0.4 % (0-2.0); EOS % 0.9 % (0-4.5); HEMATOCRIT 39.9 % (32.4-45.2); HEMOGLOBIN 13.5 GM/dL (10.7-15.3); MCHC 33.8 g/dl (32.0-36.0); MEAN PLT VOLUME 8.9 fl (7.5-11.1); MONO % 4.1 % (3.8-10.2); NEUT % 76.6 % (42.8-82.8); PLATELET COUNT 263 K/MM3 (134-434); RBC 4.64 M/mm3 (3.60-5.2); RDW 14.6 % (11.6-15.6); WHITE BLOOD COUNT 12.1 K/mm3 (4.0-10.0)
[2020-02-23 18:35] LABS: EPI CELLS 5 /uL (0-25.1); HYALINE CASTS 0 /uL (0-3.1); PH,URINE 5.5 (5.0-8.0); URINE APPEARANCE CLEAR; URINE BACTERIA 105 /uL (0-1359); URINE BILIRUBIN NEGATIVE (NEGATIVE); URINE COLOR YELLOW; URINE GLUCOSE (UA) NEGATIVE (NEGATIVE); URINE KETONE 3+ (NEGATIVE); URINE LEUK ESTERASE NEGATIVE (NEGATIVE); URINE NITRITE NEGATIVE (NEGATIVE); URINE PROTEIN TRACE (NEGATIVE); URINE RBC 11 /uL (0-23.9); URINE UROBILINOGEN 0.2 mg/dL (0.2-1.0); URINE WBC 3 /uL (0-25.8)
[2020-02-23 18:39] LABS: PROTHROMBIN TIME (PATIENT) 11.8 SEC (9.7-13.0)
[2020-02-23 19:06] LABS: ALK PHOS 56 U/L (45-117); ANION GAP 14 MMOL/L (8-16); BILIRUBIN,TOTAL 0.6 mg/dL (0.2-1); BLOOD UREA NITROGEN 8.3 mg/dL (7-18); CALCIUM 8.5 mg/dL (8.5-10.1); CHLORIDE 102 mmol/L (98-107); CO2 21 mmol/L (21-32); CREATININE 0.5 mg/dL (0.55-1.3); GLUCOSE,RANDOM 76 mg/dL (74-106); LIPASE 113 U/L (73-393); POTASSIUM 3.5 mmol/L (3.5-5.1); SGOT/AST 40 U/L (15-37); SGPT/ALT 37 U/L (13-61); SODIUM 136 mmol/L (136-145); TOT PROT 7.6 g/dl (6.4-8.2)
[2020-02-23] MEDS ORDERED: SODIUM CHLORIDE 0.9% 500 ML INFUS.BAG IV ONE (19:32)
[2020-02-23] MEDS ORDERED: LACTULOSE 20 GM/30 ML UDC (FOR ORAL USE ONLY) PO ONE (21:00)
[2020-02-23] MEDS ORDERED: MINERAL OIL ENEMA 133 ML ENEMA PR ONE (21:06)
[2020-02-23] MEDS ORDERED: LACTULOSE 20 GM/30 ML UDC (FOR ORAL USE ONLY) ONE (21:27)
== END 2020-02-24 00:14 | disposition home or self-care (01) ==
LOC: JER 17:02
DX: K59.00 Constipation, unspecified (principal)
CPT/HCPCS: 36415; 74177-TC; 80053; 81003; 82550; 82553; 83690; 84484; 84703; 85025; 85610; 87086; 93005; 93010; 99284-25; J0131; Q9967

== ENCOUNTER 2020-07-23 20:16 | Inpatient (IN) | payer OTHER ==
[2020-07-23] MEDS ORDERED: ONDANSETRON *ODT* 4 MG TABLET SL PRN (21:23)
[2020-07-23] MEDS ORDERED: guaiFENesin 200 MG/10 ML 10 ML UNIT-DOSE CUPS PO PRN (21:23)
[2020-07-23] MEDS ORDERED: NICOTINE POLACRILEX 2 MG GUM BUC PRN (21:23)
[2020-07-23] MEDS ORDERED: METHOCARBAMOL 500 MG TABLET PO PRN (21:23)
[2020-07-23] MEDS ORDERED: BISMUTH SUBSALICYLATE 524 MG/30 ML UD PO PRN (21:23)
[2020-07-23] MEDS ORDERED: P-EPHED 60MG/TRIPROLIDI 2.5MG TABLET PO PRN (21:23)
[2020-07-23] MEDS ORDERED: MAGNESIUM CITRATE 300 ML BOTTLE PO PRN (21:23)
[2020-07-23] MEDS ORDERED: MENTHOL/PHENOL 1 EACH UD MM PRN (21:23)
[2020-07-23] MEDS ORDERED: IBUPROFEN 400 MG TABLET (FP) PO PRN (21:23)
[2020-07-23] MEDS ORDERED: MAGNESIUM HYDROX 2400MG/30ML ORAL SUSPENSION 30 ML CUP PO PRN (21:23)
[2020-07-23] MEDS ORDERED: ACETAMINOPHEN 325 MG TABLET (FP) PO PRN (21:23)
[2020-07-23] MEDS ORDERED: LOPERAMIDE HCL 2 MG CAPSULE PO PRN (21:23)
[2020-07-23] MEDS ORDERED: chlordiazePOXIDE HCL 25 MG CAPSULE PO PRN (21:23)
[2020-07-23] MEDS ORDERED: MAG HYDROX/AL HYDROX/SIMETH 30 ML UNIT-DOSE CUP PO PRN (21:23)
[2020-07-23 21:29] VITALS: BMI 34.0
[2020-07-23] MEDS: hydrOXYzine PAMOATE 25 MG CAPSULE (FP) PO PRN (22:28)
[2020-07-23] MEDS: THIAMINE HCL 100 MG TABLET (FP) PO SCH (22:28)
[2020-07-23] MEDS: chlordiazePOXIDE HCL 25 MG CAPSULE PO SCH (22:28)
[2020-07-23] MEDS: MELATONIN 5 MG TABLETS PO SCH (22:33)
[2020-07-24] MEDS: hydrOXYzine PAMOATE 25 MG CAPSULE (FP) PO PRN (05:46)
[2020-07-24] MEDS: chlordiazePOXIDE HCL 25 MG CAPSULE PO SCH ×4 (05:46→22:09)
[2020-07-24] MEDS: NICOTINE 14 MG/24 HOURS TOPICAL PATCH TD SCH (10:11)
[2020-07-24] MEDS: PRENATAL VITAMINS W/ FOLIC ACID TABLET (FP) PO SCH (10:11)
[2020-07-24 10:41] LABS: POTASSIUM 3.3 mmol/L (3.5-5.1)
[2020-07-24 10:43] LABS: HEMATOCRIT 38.3 % (32.4-45.2); MCH 28.4 pg (25.7-33.7); MCHC 33.9 g/dl (32.0-36.0); MEAN CELL VOLUME 83.7 fl (80-96); MEAN PLT VOLUME 8.9 fl (7.5-11.1); PLATELET COUNT 234 K/MM3 (134-434); RBC 4.58 M/mm3 (3.60-5.2); RDW 14.6 % (11.6-15.6); WHITE BLOOD COUNT 6.7 K/mm3 (4.0-10.0)
[2020-07-24 10:44] LABS: BLOOD UREA NITROGEN 13.7 mg/dL (7-18); CALCIUM 8.8 mg/dL (8.5-10.1)
[2020-07-24 10:45] LABS: ALBUMIN 3.8 g/dl (3.4-5.0)
[2020-07-24 10:47] LABS: CREATININE 0.5 mg/dL (0.55-1.3)
[2020-07-24 10:49] LABS: BILIRUBIN,TOTAL 0.5 mg/dL (0.2-1); TOT PROT 6.9 g/dl (6.4-8.2)
[2020-07-24] MEDS: ACETAMINOPHEN 325 MG TABLET (FP) PO PRN (12:22)
[2020-07-24] MEDS ORDERED: POTASSIUM CHLORIDE ORAL LIQUID 20 MEQ/15 ML PO ONE (14:49)
[2020-07-24] MEDS: THIAMINE HCL 100 MG TABLET (FP) PO SCH (22:08)
[2020-07-24] MEDS: MELATONIN 5 MG TABLETS PO SCH (22:08)
[2020-07-25] MEDS: hydrOXYzine PAMOATE 25 MG CAPSULE (FP) PO PRN ×2 (06:10→22:10)
[2020-07-25] MEDS: chlordiazePOXIDE HCL 25 MG CAPSULE PO SCH ×2 (06:12→10:30)
[2020-07-25] MEDS: PRENATAL VITAMINS W/ FOLIC ACID TABLET (FP) PO SCH (10:29)
[2020-07-25] MEDS: ACETAMINOPHEN 325 MG TABLET (FP) PO PRN (10:30)
[2020-07-25] MEDS: NICOTINE 14 MG/24 HOURS TOPICAL PATCH TD SCH (10:30)
[2020-07-25] MEDS ORDERED: POTASSIUM CHLORIDE ORAL LIQUID 20 MEQ/15 ML PO ONE ×2 (15:00→19:00)
[2020-07-25] MEDS ORDERED: LORazepam 1 MG TABLET PO PRN (15:21)
[2020-07-25] MEDS: LORazepam 2 MG TABLET PO SCH ×2 (17:23→22:10)
[2020-07-25] MEDS ORDERED: MASKS NR ONE (20:49)
[2020-07-25 21:54] VITALS: BP 132/71; PULSE 106; TEMP 98.1
[2020-07-25] MEDS: MELATONIN 5 MG TABLETS PO SCH (22:10)
[2020-07-25] MEDS: THIAMINE HCL 100 MG TABLET (FP) PO SCH (22:10)
[2020-07-26] MEDS ORDERED: chlordiazePOXIDE HCL 10 MG CAPSULE PO PRN
[2020-07-26] MEDS ORDERED: LORazepam 1 MG TABLET PO SCH (05:00)
[2020-07-26] MEDS ORDERED: chlordiazePOXIDE HCL 10 MG CAPSULE PO SCH (05:00)
[2020-07-27] MEDS ORDERED: LORazepam 0.5 MG TABLET PO PRN
[2020-07-27] MEDS ORDERED: LORazepam 0.5 MG TABLET PO SCH (05:00)
[2020-07-27] MEDS ORDERED: chlordiazePOXIDE HCL 10 MG CAPSULE PO SCH (05:00)
[2020-07-28] MEDS ORDERED: chlordiazePOXIDE HCL 10 MG CAPSULE PO ONE (05:00)
[2020-07-28] MEDS ORDERED: LORazepam 0.5 MG TABLET PO ONE (05:00)
== END 2020-07-26 06:34 | disposition left against medical advice (07) | DRG 770 ==
LOC: YASAS 20:16 → Y3N 21:52
PROVIDERS: ADMIT Allergy & Immunology; ATTEND Allergy & Immunology
PROC: HZ2ZZZZ Detoxification Services for Substance Abuse Treatment (ICD-10-PCS; principal; 2020-07-23)
DX: F10.230 Alcohol dependence with withdrawal, uncomplicated (principal); F17.210 Nicotine dependence, cigarettes, uncomplicated; F10.24 Alcohol dependence with alcohol-induced mood disorder; K29.70 Gastritis, unspecified, without bleeding; R73.9 Hyperglycemia, unspecified; R45.89 Other symptoms and signs involving emotional state; R00.0 Tachycardia, unspecified; R63.8 Other symptoms and signs concerning food and fluid intake; Z86.2 Personal history of diseases of the blood and blood-forming organs and certain disorders involving the immune mechanism; Z91.81 History of falling; Z86.19 Personal history of other infectious and parasitic diseases
CPT/HCPCS: 36415; 80053; 81025; 82962; 84132; 85027; 86780; 93005; 93010; C9803; U0003

== ENCOUNTER 2020-08-11 17:12 | Inpatient (IN) | payer OTHER ==
[2020-08-11 18:02] VITALS: BMI 33.0
[2020-08-11] MEDS ORDERED: MENTHOL/PHENOL 1 EACH UD MM PRN ×2 (18:37→18:52)
[2020-08-11] MEDS ORDERED: ACETAMINOPHEN 325 MG TABLET (FP) PO PRN ×4 (18:37→18:52)
[2020-08-11] MEDS ORDERED: MAGNESIUM CITRATE 300 ML BOTTLE PO PRN ×2 (18:37→18:52)
[2020-08-11] MEDS ORDERED: METHOCARBAMOL 500 MG TABLET PO PRN (18:37)
[2020-08-11] MEDS ORDERED: MAGNESIUM HYDROX 2400MG/30ML ORAL SUSPENSION 30 ML CUP PO PRN ×2 (18:37→18:52)
[2020-08-11] MEDS ORDERED: BISMUTH SUBSALICYLATE 524 MG/30 ML UD PO PRN ×2 (18:37→18:52)
[2020-08-11] MEDS ORDERED: NICOTINE POLACRILEX 2 MG GUM BUC PRN ×2 (18:37→18:52)
[2020-08-11] MEDS ORDERED: ONDANSETRON *ODT* 4 MG TABLET SL PRN ×2 (18:37→18:52)
[2020-08-11] MEDS ORDERED: IBUPROFEN 400 MG TABLET (FP) PO PRN (18:37)
[2020-08-11] MEDS ORDERED: MAG HYDROX/AL HYDROX/SIMETH 30 ML UNIT-DOSE CUP PO PRN ×2 (18:37→18:52)
[2020-08-11] MEDS: LORazepam 1 MG TABLET PO PRN (19:54)
[2020-08-11] MEDS ORDERED: THIAMINE HCL 100 MG TABLET (FP) PO SCH (22:00)
[2020-08-11] MEDS ORDERED: MELATONIN 5 MG TABLETS PO SCH ×2 (22:00)
[2020-08-11] MEDS: LORazepam 2 MG TABLET PO SCH (22:11)
[2020-08-11] MEDS: THIAMINE HCL 100 MG TABLET (FP) PO SCH (22:11)
[2020-08-12] MEDS: LORazepam 2 MG TABLET PO SCH ×4 (05:57→22:20)
[2020-08-12] MEDS ORDERED: PRENATAL VITAMINS W/ FOLIC ACID TABLET (FP) PO SCH (10:00)
[2020-08-12] MEDS: LORazepam 1 MG TABLET PO PRN (10:06)
[2020-08-12] MEDS: METHOCARBAMOL 500 MG TABLET PO PRN (10:06)
[2020-08-12] MEDS: PRENATAL VITAMINS W/ FOLIC ACID TABLET (FP) PO SCH (10:08)
[2020-08-12 10:42] LABS: POTASSIUM 3.3 mmol/L (3.5-5.1)
[2020-08-12 10:44] LABS: ALBUMIN 3.6 g/dl (3.4-5.0); CALCIUM 8.2 mg/dL (8.5-10.1)
[2020-08-12 10:46] LABS: HEMATOCRIT 37.9 % (32.4-45.2); HEMOGLOBIN 12.7 GM/dL (10.7-15.3); MCH 29.5 pg (25.7-33.7); MCHC 33.6 g/dl (32.0-36.0); MEAN CELL VOLUME 87.7 fl (80-96); PLATELET COUNT 218 K/MM3 (134-434); RBC 4.32 M/mm3 (3.60-5.2); RDW 15.3 % (11.6-15.6); WHITE BLOOD COUNT 5.4 K/mm3 (4.0-10.0)
[2020-08-12 10:48] LABS: CREATININE 0.5 mg/dL (0.55-1.3)
[2020-08-12 10:49] LABS: BILIRUBIN,TOTAL 0.6 mg/dL (0.2-1)
[2020-08-12 10:53] LABS: BLOOD UREA NITROGEN 13.3 mg/dL (7-18)
[2020-08-12] MEDS ORDERED: POTASSIUM CHLORIDE ORAL LIQUID 20 MEQ/15 ML PO ONE ×2 (13:30→17:00)
[2020-08-12] MEDS: amLODIPine BESYLATE 5 MG TABLET (FP) PO SCH (13:45)
[2020-08-12] MEDS: THIAMINE HCL 100 MG TABLET (FP) PO SCH (22:20)
[2020-08-12] MEDS: MELATONIN 5 MG TABLETS PO SCH (22:20)
[2020-08-13] MEDS: LORazepam 1 MG TABLET PO SCH ×4 (05:51→22:13)
[2020-08-13] MEDS: amLODIPine BESYLATE 5 MG TABLET (FP) PO SCH (10:16)
[2020-08-13] MEDS: PRENATAL VITAMINS W/ FOLIC ACID TABLET (FP) PO SCH (10:16)
[2020-08-13] MEDS: IBUPROFEN 400 MG TABLET (FP) PO PRN ×2 (10:17→22:15)
[2020-08-13] MEDS: METHOCARBAMOL 500 MG TABLET PO PRN (10:19)
[2020-08-13] MEDS ORDERED: POTASSIUM CHLORIDE ORAL LIQUID 20 MEQ/15 ML PO ONE ×2 (12:30→16:30)
[2020-08-13] MEDS: THIAMINE HCL 100 MG TABLET (FP) PO SCH (22:13)
[2020-08-13] MEDS: MELATONIN 5 MG TABLETS PO SCH (22:13)
[2020-08-14] MEDS ORDERED: LORazepam 0.5 MG TABLET PO PRN
[2020-08-14] MEDS: METHOCARBAMOL 500 MG TABLET PO PRN (00:45)
[2020-08-14] MEDS: LORazepam 0.5 MG TABLET PO SCH ×4 (05:33→22:06)
[2020-08-14] MEDS: PRENATAL VITAMINS W/ FOLIC ACID TABLET (FP) PO SCH (10:05)
[2020-08-14] MEDS: amLODIPine BESYLATE 5 MG TABLET (FP) PO SCH (10:05)
[2020-08-14] MEDS: THIAMINE HCL 100 MG TABLET (FP) PO SCH (22:06)
[2020-08-14] MEDS: MELATONIN 5 MG TABLETS PO SCH (22:06)
[2020-08-14] MEDS: IBUPROFEN 400 MG TABLET (FP) PO PRN (22:56)
[2020-08-15] MEDS ORDERED: LORazepam 0.5 MG TABLET PO ONE (05:00)
[2020-08-15] MEDS: IBUPROFEN 400 MG TABLET (FP) PO PRN (07:21)
[2020-08-15] MEDS: PRENATAL VITAMINS W/ FOLIC ACID TABLET (FP) PO SCH (09:14)
[2020-08-15] MEDS: amLODIPine BESYLATE 5 MG TABLET (FP) PO SCH (09:14)
[2020-08-15 09:27] VITALS: BP 125/75; PULSE 103; TEMP 97.3
== END 2020-08-15 10:04 | disposition home or self-care (01) | DRG 775 ==
LOC: YASAS 17:12 → Y3N 19:18
PROVIDERS: ADMIT Allergy & Immunology; ATTEND Allergy & Immunology
PROC: HZ2ZZZZ Detoxification Services for Substance Abuse Treatment (ICD-10-PCS; principal; 2020-08-11)
DX: F10.230 Alcohol dependence with withdrawal, uncomplicated (principal); F10.220 Alcohol dependence with intoxication, uncomplicated; F17.210 Nicotine dependence, cigarettes, uncomplicated; E87.6 Hypokalemia; B19.20 Unspecified viral hepatitis C without hepatic coma; M19.90 Unspecified osteoarthritis, unspecified site; R25.1 Tremor, unspecified; Z95.9 Presence of cardiac and vascular implant and graft, unspecified; Z88.8 Allergy status to other drugs, medicaments and biological substances
CPT/HCPCS: 36415; 80053; 81025; 82962; 84132; 85027; 86780; C9803; U0003

== ENCOUNTER 2020-12-09 17:07 | Inpatient (IN) | payer OTHER ==
[2020-12-09 18:33] VITALS: BMI 34.9
[2020-12-09] MEDS ORDERED: ACETAMINOPHEN 325 MG TABLET (FP) PO PRN (19:54)
[2020-12-09] MEDS ORDERED: BISMUTH SUBSALICYLATE 524 MG/30 ML UD PO PRN (19:54)
[2020-12-09] MEDS ORDERED: MAGNESIUM HYDROX 2400MG/30ML ORAL SUSPENSION 30 ML CUP PO PRN (19:54)
[2020-12-09] MEDS ORDERED: MENTHOL/PHENOL 1 EACH UD MM PRN (19:54)
[2020-12-09] MEDS ORDERED: MAGNESIUM CITRATE 300 ML BOTTLE PO PRN (19:54)
[2020-12-09] MEDS ORDERED: ONDANSETRON *ODT* 4 MG TABLET SL PRN (19:54)
[2020-12-09] MEDS: MELATONIN 5 MG TABLETS PO SCH (21:23)
[2020-12-09] MEDS: THIAMINE HCL 100 MG TABLET (FP) PO SCH (21:23)
[2020-12-09] MEDS: diazePAM 5 MG TABLET PO SCH (22:00)
[2020-12-10] MEDS: diazePAM 5 MG TABLET PO PRN (02:26)
[2020-12-10] MEDS: diazePAM 5 MG TABLET PO SCH ×4 (05:16→22:25)
[2020-12-10 09:40] LABS: HEMATOCRIT 36.8 % (32.4-45.2); HEMOGLOBIN 12.7 GM/dL (10.7-15.3); MCH 29.4 pg (25.7-33.7); MCHC 34.4 g/dl (32.0-36.0); MEAN CELL VOLUME 85.5 fl (80-96); MEAN PLT VOLUME 9.3 fl (7.5-11.1); PLATELET COUNT 183 K/MM3 (134-434); RDW 14.5 % (11.6-15.6); WHITE BLOOD COUNT 6.6 K/mm3 (4.0-10.0)
[2020-12-10 10:06] LABS: BILIRUBIN,TOTAL 0.5 mg/dL (0.2-1)
[2020-12-10 10:08] LABS: BLOOD UREA NITROGEN 10.5 mg/dL (7-18)
[2020-12-10 10:09] LABS: ALBUMIN 3.6 g/dl (3.4-5.0)
[2020-12-10 10:11] LABS: CALCIUM 8.4 mg/dL (8.5-10.1)
[2020-12-10 10:12] LABS: CREATININE 0.5 mg/dL (0.55-1.3); TOT PROT 7.1 g/dl (6.4-8.2)
[2020-12-10] MEDS: amLODIPine BESYLATE 5 MG TABLET (FP) PO SCH (10:13)
[2020-12-10] MEDS: PRENATAL VITAMINS W/ FOLIC ACID TABLET (FP) PO SCH (10:13)
[2020-12-10] MEDS: IBUPROFEN 400 MG TABLET (FP) PO PRN ×2 (10:49→22:24)
[2020-12-10] MEDS: ACETAMINOPHEN 325 MG TABLET (FP) PO PRN (17:47)
[2020-12-10] MEDS: MELATONIN 5 MG TABLETS PO SCH (22:24)
[2020-12-10] MEDS: METHOCARBAMOL 500 MG TABLET PO PRN (22:25)
[2020-12-10] MEDS: THIAMINE HCL 100 MG TABLET (FP) PO SCH (22:25)
[2020-12-11] MEDS: diazePAM 5 MG TABLET PO SCH ×3 (05:45→21:14)
[2020-12-11] MEDS: diazePAM 5 MG TABLET PO PRN ×2 (09:38→17:23)
[2020-12-11] MEDS: PRENATAL VITAMINS W/ FOLIC ACID TABLET (FP) PO SCH (09:38)
[2020-12-11] MEDS: amLODIPine BESYLATE 5 MG TABLET (FP) PO SCH (09:38)
[2020-12-11] MEDS: ARTIFICIAL TEARS (POLYVINYL ALCOHOL) OPTH DROPS OU PRN ×2 (13:37→17:26)
[2020-12-11] MEDS: MELATONIN 5 MG TABLETS PO SCH (21:14)
[2020-12-11] MEDS: THIAMINE HCL 100 MG TABLET (FP) PO SCH (21:14)
[2020-12-11] MEDS: MAG HYDROX/AL HYDROX/SIMETH 30 ML UNIT-DOSE CUP PO PRN (22:20)
[2020-12-12] MEDS: diazePAM 5 MG TABLET PO SCH ×2 (05:47→18:02)
[2020-12-12] MEDS: ARTIFICIAL TEARS (POLYVINYL ALCOHOL) OPTH DROPS OU PRN ×3 (06:45→18:03)
[2020-12-12 08:09] LABS: SARS-CoV-2 NAA Not Detected (Not Detected)
[2020-12-12] MEDS: PRENATAL VITAMINS W/ FOLIC ACID TABLET (FP) PO SCH (10:05)
[2020-12-12] MEDS: METHOCARBAMOL 500 MG TABLET PO PRN ×2 (10:05→22:46)
[2020-12-12] MEDS: IBUPROFEN 400 MG TABLET (FP) PO PRN ×2 (10:05→22:46)
[2020-12-12] MEDS: amLODIPine BESYLATE 5 MG TABLET (FP) PO SCH (10:05)
[2020-12-12] MEDS: MAG HYDROX/AL HYDROX/SIMETH 30 ML UNIT-DOSE CUP PO PRN (10:06)
[2020-12-12] MEDS: diazePAM 5 MG TABLET PO PRN (10:08)
[2020-12-12] MEDS: MELATONIN 5 MG TABLETS PO SCH (22:44)
[2020-12-12] MEDS: THIAMINE HCL 100 MG TABLET (FP) PO SCH (22:44)
[2020-12-13] MEDS: ARTIFICIAL TEARS (POLYVINYL ALCOHOL) OPTH DROPS OU PRN ×2 (02:49→09:34)
[2020-12-13] MEDS ORDERED: diazePAM 5 MG TABLET PO ONE (06:00)
[2020-12-13] MEDS: ACETAMINOPHEN 325 MG TABLET (FP) PO PRN (06:27)
[2020-12-13 08:54] VITALS: BP 115/73; PULSE 67; TEMP 97.3
[2020-12-13] MEDS: PRENATAL VITAMINS W/ FOLIC ACID TABLET (FP) PO SCH (09:31)
[2020-12-13] MEDS: amLODIPine BESYLATE 5 MG TABLET (FP) PO SCH (09:32)
== END 2020-12-13 10:12 | disposition home or self-care (01) | DRG 775 ==
LOC: YASAS 17:07 → Y3N 20:08
PROVIDERS: ADMIT Allergy & Immunology; ATTEND Allergy & Immunology
PROC: HZ2ZZZZ Detoxification Services for Substance Abuse Treatment (ICD-10-PCS; principal; 2020-12-09)
DX: F10.230 Alcohol dependence with withdrawal, uncomplicated (principal); F41.9 Anxiety disorder, unspecified; D50.9 Iron deficiency anemia, unspecified; H11.31 Conjunctival hemorrhage, right eye; M19.90 Unspecified osteoarthritis, unspecified site; Z95.9 Presence of cardiac and vascular implant and graft, unspecified; R11.2 Nausea with vomiting, unspecified; Z91.81 History of falling; Z88.5 Allergy status to narcotic agent
CPT/HCPCS: 36415; 80053; 81025; 85027; 86780; C9803; U0003; U0005

== ENCOUNTER 2021-02-18 18:51 | Emergency (ER) | payer OTHER ==
[2021-02-18 19:22] VITALS: BMI 31.1
[2021-02-18 20:08] LABS: BASO % 0.4 % (0-2.0); EOS % 1.2 % (0-4.5); HEMATOCRIT 46.3 % (32.4-45.2); HEMOGLOBIN 15.6 GM/dL (10.7-15.3); LYMPH % 45.7 % (8-40); MCH 28.5 pg (25.7-33.7); MCHC 33.6 g/dl (32.0-36.0); MEAN CELL VOLUME 84.8 fl (80-96); MEAN PLT VOLUME 8.5 fl (7.5-11.1); MONO % 3.3 % (3.8-10.2); NEUT % 49.4 % (42.8-82.8); PLATELET COUNT 300 10^3/uL (134-434); RBC 5.46 M/mm3 (3.60-5.2); RDW 14.5 % (11.6-15.6); WHITE BLOOD COUNT 9.2 K/mm3 (4.0-10.0)
[2021-02-18 20:16] LABS: INR 0.97 (0.83-1.09); PROTHROMBIN TIME (PATIENT) 11.9 SEC (9.7-13.0)
[2021-02-18 20:18] LABS: CHLORIDE 108 mmol/L (98-107); SODIUM 145 mmol/L (136-145)
[2021-02-18 20:19] LABS: ACTIVATED PTT 32.7 SECONDS (25.2-36.5)
[2021-02-18 20:20] LABS: CALCIUM 9.1 mg/dL (8.5-10.1)
[2021-02-18 20:21] LABS: ALBUMIN 4.8 g/dl (3.4-5.0); ANION GAP 15 MMOL/L (8-16); BLOOD UREA NITROGEN 10.6 mg/dL (7-18); CO2 22 mmol/L (21-32); GLUCOSE,RANDOM 81 mg/dL (74-106)
[2021-02-18 20:24] LABS: CREATININE 0.6 mg/dL (0.55-1.3); SGOT/AST 41 U/L (15-37); SGPT/ALT 38 U/L (13-61); TOT PROT 8.9 g/dl (6.4-8.2)
[2021-02-18 20:27] LABS: ALK PHOS 79 U/L (45-117)
[2021-02-18 20:34] LABS: BILIRUBIN,TOTAL 0.4 mg/dL (0.2-1)
[2021-02-18] MEDS ORDERED: FOLIC ACID INJECTION - 1 MG, THIAMINE HCL 100 MG, MULTIVIT INJECTION ADULT 10 ML in SOD... IVPB ONE (23:20)
[2021-02-18] MEDS ORDERED: diazePAM 5 MG TABLET PO PRN (23:22)
[2021-02-19] MEDS ORDERED: diazePAM 5 MG TABLET ONE ×6 (00:06→22:53)
[2021-02-19] MEDS: diazePAM 5 MG TABLET PO SCH ×5 (00:10→22:55)
[2021-02-19] MEDS ORDERED: ACETAMINOPHEN 1000 MG/100 ML VIAL (NON FORMULARY) IVPB ONE (03:51)
[2021-02-19 04:08] LABS: EPI CELLS >36 /uL (0-25.1); HYALINE CASTS 11 /uL (0-3.1); URINE APPEARANCE CLEAR; URINE BACTERIA 387 /uL (0-1359); URINE BILIRUBIN NEGATIVE (NEGATIVE); URINE COLOR YELLOW; URINE GLUCOSE (UA) NEGATIVE (NEGATIVE); URINE KETONE 2+ (NEGATIVE); URINE LEUK ESTERASE NEGATIVE (NEGATIVE); URINE NITRITE NEGATIVE (NEGATIVE); URINE PROTEIN 2+ (NEGATIVE); URINE WBC 24 /uL (0-25.8)
[2021-02-19] MEDS ORDERED: ACETAMINOPHEN INJECTION 100 ML IVPB ONE (04:34)
[2021-02-19 07:24] LABS: HEMATOCRIT 39.3 % (32.4-45.2); HEMOGLOBIN 13.5 GM/dL (10.7-15.3); MCH 28.8 pg (25.7-33.7); MCHC 34.3 g/dl (32.0-36.0); MEAN PLT VOLUME 8.6 fl (7.5-11.1); PLATELET COUNT 254 10^3/uL (134-434); RBC 4.68 M/mm3 (3.60-5.2); RDW 14.3 % (11.6-15.6); WHITE BLOOD COUNT 8.4 K/mm3 (4.0-10.0)
[2021-02-19 07:56] LABS: CALCIUM 8.4 mg/dL (8.5-10.1)
[2021-02-19 07:57] LABS: ALBUMIN 4.2 g/dl (3.4-5.0); BLOOD UREA NITROGEN 14.9 mg/dL (7-18)
[2021-02-19 07:58] LABS: CREATININE 0.4 mg/dL (0.55-1.3)
[2021-02-19 07:59] LABS: PHOSPHOROUS 3.9 mg/dL (2.5-4.9)
[2021-02-19 08:00] LABS: TOT PROT 7.6 g/dl (6.4-8.2)
[2021-02-19 08:02] LABS: BILIRUBIN,TOTAL 0.6 mg/dL (0.2-1)
[2021-02-19] MEDS ORDERED: MULTIVITAMINS (DAILY MVI) TABLET (FP) ONE (09:41)
[2021-02-19] MEDS ORDERED: amLODIPine BESYLATE 5 MG TABLET (FP) ONE (09:41)
[2021-02-19] MEDS ORDERED: ENOXAPARIN NA (PORCINE) 40 MG/0.4 ML DISP.SYRIN SQ ONE (09:42)
[2021-02-19] MEDS ORDERED: THIAMINE HCL 100 MG TABLET (FP) ONE (09:42)
[2021-02-19] MEDS ORDERED: FOLIC ACID 1 MG TABLET (FP) ONE (09:42)
[2021-02-19] MEDS ORDERED: diazePAM 5 MG TABLET PO PRN (09:59)
[2021-02-19] MEDS: THIAMINE HCL 100 MG TABLET (FP) PO SCH (11:00)
[2021-02-19] MEDS: MULTIVITAMINS (DAILY MVI) TABLET (FP) PO SCH (11:00)
[2021-02-19] MEDS: FOLIC ACID 1 MG TABLET (FP) PO SCH (11:00)
[2021-02-19] MEDS: ENOXAPARIN NA (PORCINE) 40 MG/0.4 ML DISP.SYRIN SQ SCH (11:00)
[2021-02-19] MEDS: amLODIPine BESYLATE 5 MG TABLET (FP) PO SCH (11:00)
[2021-02-19] MEDS ORDERED: IBUPROFEN 400 MG TABLET (FP) PO ONE ×2 (11:23→12:04)
[2021-02-19 12:38] LABS: URINE RBC 16.8 /uL (0-23.9)
[2021-02-19] MEDS: NICOTINE 7 MG/24 HOURS TOPICAL PATCH TD SCH (14:11)
[2021-02-19] MEDS: LACTATED RINGERS SOLUTION 1,000 ML/1,000 ML INFUS.BAG IV SCH (17:21)
[2021-02-20] MEDS ORDERED: diazePAM 5 MG TABLET ONE ×3 (03:09→13:59)
[2021-02-20] MEDS: diazePAM 5 MG TABLET PO SCH ×2 (06:03→14:04)
[2021-02-20 07:13] LABS: CALCIUM 8.1 mg/dL (8.5-10.1)
[2021-02-20 07:15] LABS: BLOOD UREA NITROGEN 8.6 mg/dL (7-18); MAGNESIUM 1.8 mg/dL (1.8-2.4)
[2021-02-20 07:18] LABS: CREATININE 0.4 mg/dL (0.55-1.3)
[2021-02-20] MEDS ORDERED: POTASSIUM CHLORIDE TABS 20 MEQ TABLET.ER (FP) PO ONE ×2 (09:05→10:33)
[2021-02-20] MEDS ORDERED: FOLIC ACID 1 MG TABLET (FP) ONE (10:15)
[2021-02-20] MEDS ORDERED: ENOXAPARIN NA (PORCINE) 40 MG/0.4 ML DISP.SYRIN SQ ONE (10:16)
[2021-02-20] MEDS ORDERED: PT OWN MED DRAWER 7, Y5N ONE (10:18)
[2021-02-20 10:21] LABS: N-TERMINAL BNP 29.5 pg/ml (5-125)
[2021-02-20] MEDS ORDERED: THIAMINE HCL 100 MG TABLET (FP) ONE (10:23)
[2021-02-20] MEDS ORDERED: MULTIVITAMINS (DAILY MVI) TABLET (FP) ONE (10:23)
[2021-02-20] MEDS: FOLIC ACID 1 MG TABLET (FP) PO SCH (10:30)
[2021-02-20] MEDS: ENOXAPARIN NA (PORCINE) 40 MG/0.4 ML DISP.SYRIN SQ SCH (10:30)
[2021-02-20] MEDS: amLODIPine BESYLATE 5 MG TABLET (FP) PO SCH (10:30)
[2021-02-20] MEDS: NICOTINE 7 MG/24 HOURS TOPICAL PATCH TD SCH (10:30)
[2021-02-20] MEDS: MULTIVITAMINS (DAILY MVI) TABLET (FP) PO SCH (10:30)
[2021-02-20] MEDS: THIAMINE HCL 100 MG TABLET (FP) PO SCH (10:30)
[2021-02-20] MEDS ORDERED: amLODIPine BESYLATE 2.5 MG TABLET (FP) ONE (10:34)
[2021-02-20] MEDS ORDERED: ACETAMINOPHEN 325 MG TABLET (FP) PO ONE (14:35)
[2021-02-20] MEDS ORDERED: ACETAMINOPHEN 325 MG TABLET (FP) ONE (14:51)
[2021-02-20] MEDS: LACTATED RINGERS SOLUTION 1,000 ML/1,000 ML INFUS.BAG IV SCH (15:11)
[2021-02-20 15:21] VITALS: BP 127/81; PULSE 89; TEMP 98.5
[2021-02-21] MEDS ORDERED: diazePAM 5 MG TABLET PO SCH (06:00)
[2021-02-22] MEDS ORDERED: diazePAM 5 MG TABLET PO ONE (06:00)
== END 2021-02-20 15:22 | disposition other institution (70) ==
LOC: JER 18:51 → JERBED 22:00 → INTOOBSV 23:14 → OBSVTOIN 23:14
PROVIDERS: ADMIT Internal Medicine; ATTEND Student in an Organized Health Care Education/Training Program
PROC: 3E033GC Introduction of Other Therapeutic Substance into Peripheral Vein, Percutaneous Approach (ICD-10-PCS; principal; 2021-02-18)
PROC: 3E033GC Introduction of Other Therapeutic Substance into Peripheral Vein, Percutaneous Approach (ICD-10-PCS; 2021-02-18)
PROC: 3E013GC Introduction of Other Therapeutic Substance into Subcutaneous Tissue, Percutaneous Approach (ICD-10-PCS; 2021-02-18)
DX: F10.220 Alcohol dependence with intoxication, uncomplicated (principal); F10.230 Alcohol dependence with withdrawal, uncomplicated; F10.282 Alcohol dependence with alcohol-induced sleep disorder; F10.24 Alcohol dependence with alcohol-induced mood disorder; R55 Syncope and collapse; W18.30XA Fall on same level, unspecified, initial encounter; Y93.89 Activity, other specified; Y92.238 Other place in hospital as the place of occurrence of the external cause; F17.210 Nicotine dependence, cigarettes, uncomplicated; E66.9 Obesity, unspecified; Z68.31 Body mass index [BMI] 31.0-31.9, adult; I10 Essential (primary) hypertension; Z95.810 Presence of automatic (implantable) cardiac defibrillator; Z88.0 Allergy status to penicillin; R10.9 Unspecified abdominal pain; Z91.89 Other specified personal risk factors, not elsewhere classified; R45.89 Other symptoms and signs involving emotional state; E87.6 Hypokalemia; G47.00 Insomnia, unspecified; R11.2 Nausea with vomiting, unspecified; Z91.81 History of falling; R63.8 Other symptoms and signs concerning food and fluid intake; B18.2 Chronic viral hepatitis C; D50.9 Iron deficiency anemia, unspecified; R76.11 Nonspecific reaction to tuberculin skin test without active tuberculosis; F19.24 Other psychoactive substance dependence with psychoactive substance-induced mood disorder; I42.6 Alcoholic cardiomyopathy
CPT/HCPCS: 36415; 70450-TC; 71045-TC-FY; 72125-TC; 72128-TC; 73562-TC-LT-FY; 73562-TC-RT-FY; 73610-TC-LT-FY; 73610-TC-RT-FY; 73630-TC-LT; 73630-TC-RT-FY; 80048; 80053; 80061; 81003; 82550; 82553; 83036; 83721; 83735; 83880; 84100; 84443; 84484; 84703; 85025; 85027; 85610; 85730; 87086; 93005; 93010; 93306-TC; 96365; 96366; 96367; 96372; 99285-25; C9803; G0378; J0131; U0003; U0005

== ENCOUNTER 2021-02-20 19:20 | Inpatient (IN) | payer OTHER ==
[2021-02-20] MEDS ORDERED: MAGNESIUM CITRATE 300 ML BOTTLE PO PRN (20:31)
[2021-02-20] MEDS ORDERED: MENTHOL/PHENOL 1 EACH UD MM PRN (20:31)
[2021-02-20] MEDS ORDERED: ACETAMINOPHEN 325 MG TABLET (FP) PO PRN ×2 (20:31)
[2021-02-20] MEDS ORDERED: BISMUTH SUBSALICYLATE 524 MG/30 ML PO PRN (20:31)
[2021-02-20] MEDS ORDERED: MAGNESIUM HYDROX 2400MG/30ML ORAL SUSPENSION 30 ML CUP PO PRN (20:31)
[2021-02-20] MEDS ORDERED: NICOTINE POLACRILEX 2 MG GUM BUC PRN (20:31)
[2021-02-20] MEDS ORDERED: ONDANSETRON *ODT* 4 MG TABLET SL PRN (20:31)
[2021-02-20] MEDS ORDERED: IBUPROFEN 400 MG TABLET (FP) PO PRN (20:31)
[2021-02-20] MEDS ORDERED: MAG HYDROX/AL HYDROX/SIMETH 30 ML UNIT-DOSE CUP PO PRN (20:31)
[2021-02-20 20:39] VITALS: BMI 38.2
[2021-02-20] MEDS: MELATONIN 5 MG TABLETS PO SCH (22:17)
[2021-02-20] MEDS: THIAMINE HCL 100 MG TABLET (FP) PO SCH (22:17)
[2021-02-21] MEDS: METHOCARBAMOL 500 MG TABLET PO PRN ×2 (02:29→10:29)
[2021-02-21] MEDS: amLODIPine BESYLATE 5 MG TABLET (FP) PO SCH (10:29)
[2021-02-21] MEDS: PRENATAL VITAMINS W/ FOLIC ACID TABLET (FP) PO SCH (10:29)
[2021-02-21] MEDS: diazePAM 5 MG TABLET PO SCH ×2 (10:29→22:27)
[2021-02-21] MEDS: CALCIUM (OYSTER SHELL) 500 MG TABLET (FP) PO SCH (10:30)
[2021-02-21] MEDS ORDERED: TETRAHYDROZOLINE HCL EYE DROPS OU PRN (11:48)
[2021-02-21] MEDS: MELATONIN 5 MG TABLETS PO SCH (22:27)
[2021-02-21] MEDS: THIAMINE HCL 100 MG TABLET (FP) PO SCH (22:27)
[2021-02-22] MEDS ORDERED: diazePAM 5 MG TABLET PO ONE (05:00)
[2021-02-22 10:08] VITALS: BP 137/82; PULSE 99; TEMP 96.8
[2021-02-22] MEDS: amLODIPine BESYLATE 5 MG TABLET (FP) PO SCH (10:42)
[2021-02-22] MEDS: PRENATAL VITAMINS W/ FOLIC ACID TABLET (FP) PO SCH (10:42)
[2021-02-22] MEDS: CALCIUM (OYSTER SHELL) 500 MG TABLET (FP) PO SCH (10:42)
== END 2021-02-22 12:20 | disposition home or self-care (01) | DRG 775 ==
LOC: YASAS 19:20 → UNDOADMIN 20:20 → Y6N 20:20
PROVIDERS: ADMIT Allergy & Immunology; ATTEND Allergy & Immunology
PROC: HZ2ZZZZ Detoxification Services for Substance Abuse Treatment (ICD-10-PCS; principal; 2021-02-20)
DX: F10.230 Alcohol dependence with withdrawal, uncomplicated (principal); F17.210 Nicotine dependence, cigarettes, uncomplicated; F41.9 Anxiety disorder, unspecified; D50.9 Iron deficiency anemia, unspecified; I42.6 Alcoholic cardiomyopathy; I10 Essential (primary) hypertension; M19.90 Unspecified osteoarthritis, unspecified site; B18.2 Chronic viral hepatitis C; E66.9 Obesity, unspecified; Z68.38 Body mass index [BMI] 38.0-38.9, adult; R00.0 Tachycardia, unspecified; R60.0 Localized edema; Z95.818 Presence of other cardiac implants and grafts; W19.XXXA Unspecified fall, initial encounter; Y93.89 Activity, other specified; Y92.238 Other place in hospital as the place of occurrence of the external cause
CPT/HCPCS: 36415; 81025; 86780

== ENCOUNTER 2021-07-28 13:52 | Inpatient (IN) | payer OTHER ==
[2021-07-28] MEDS ORDERED: ONDANSETRON *ODT* 4 MG TABLET SL PRN (15:30)
[2021-07-28] MEDS ORDERED: MENTHOL/PHENOL 1 EACH UD MM PRN (15:30)
[2021-07-28] MEDS ORDERED: NICOTINE 10 MG CARTRIDGE (INHALER) IH PRN (15:30)
[2021-07-28] MEDS ORDERED: MAG HYDROX/AL HYDROX/SIMETH 30 ML UNIT-DOSE CUP PO PRN (15:30)
[2021-07-28] MEDS ORDERED: MAGNESIUM CITRATE 300 ML BOTTLE PO PRN (15:30)
[2021-07-28] MEDS ORDERED: MAGNESIUM HYDROX 2400MG/30ML ORAL SUSPENSION 30 ML CUP PO PRN (15:30)
[2021-07-28] MEDS ORDERED: ACETAMINOPHEN 325 MG TABLET (FP) PO PRN (15:30)
[2021-07-28 15:48] VITALS: BMI 39.8
[2021-07-28] MEDS: diazePAM 5 MG TABLET PO SCH ×2 (18:13→22:47)
[2021-07-28] MEDS: hydrOXYzine PAMOATE 25 MG CAPSULE (FP) PO SCH ×2 (18:14→22:47)
[2021-07-28] MEDS: diazePAM 5 MG TABLET PO PRN (20:46)
[2021-07-28] MEDS: IBUPROFEN 400 MG TABLET (FP) PO PRN (21:25)
[2021-07-28] MEDS: METHOCARBAMOL 500 MG TABLET PO PRN (21:25)
[2021-07-28] MEDS: MELATONIN 5 MG TABLETS PO SCH (22:47)
[2021-07-28] MEDS: THIAMINE HCL 100 MG TABLET (FP) PO SCH (22:47)
[2021-07-29] MEDS: hydrOXYzine PAMOATE 25 MG CAPSULE (FP) PO SCH ×5 (05:46→22:37)
[2021-07-29] MEDS: diazePAM 5 MG TABLET PO SCH ×4 (05:46→22:38)
[2021-07-29] MEDS: PRENATAL VITAMINS W/ FOLIC ACID TABLET (FP) PO SCH (10:26)
[2021-07-29] MEDS: ACETAMINOPHEN 325 MG TABLET (FP) PO PRN (10:28)
[2021-07-29 14:05] LABS: HEMATOCRIT 36.5 % (32.4-45.2); HEMOGLOBIN 12.6 GM/dL (10.7-15.3); MCH 28.9 pg (25.7-33.7); MCHC 34.6 g/dl (32.0-36.0); MEAN CELL VOLUME 83.5 fl (80-96); MEAN PLT VOLUME 8.6 fl (7.5-11.1); PLATELET COUNT 214 10^3/uL (134-434); RBC 4.37 M/mm3 (3.60-5.2); RDW 14.8 % (11.6-15.6); WHITE BLOOD COUNT 6.2 K/mm3 (4.0-10.0)
[2021-07-29] MEDS: ARTIFICIAL TEARS (POLYVINYL ALCOHOL) OPTH DROPS OU SCH ×2 (14:15→22:37)
[2021-07-29 14:17] LABS: ALBUMIN 3.4 g/dl (3.4-5.0)
[2021-07-29 14:18] LABS: BLOOD UREA NITROGEN 16.5 mg/dL (7-18); CREATININE 0.5 mg/dL (0.55-1.3)
[2021-07-29 14:19] LABS: BILIRUBIN,TOTAL 0.8 mg/dL (0.2-1); TOT PROT 7.1 g/dl (6.4-8.2)
[2021-07-29 14:20] LABS: CALCIUM 8.8 mg/dL (8.5-10.1)
[2021-07-29] MEDS: METHOCARBAMOL 500 MG TABLET PO PRN (18:01)
[2021-07-29] MEDS: THIAMINE HCL 100 MG TABLET (FP) PO SCH (22:38)
[2021-07-29] MEDS: MELATONIN 5 MG TABLETS PO SCH (22:38)
[2021-07-29] MEDS: IBUPROFEN 400 MG TABLET (FP) PO PRN (22:39)
[2021-07-30] MEDS: diazePAM 5 MG TABLET PO SCH ×3 (06:23→22:23)
[2021-07-30] MEDS: hydrOXYzine PAMOATE 25 MG CAPSULE (FP) PO SCH ×5 (06:23→22:23)
[2021-07-30] MEDS: ACETAMINOPHEN 325 MG TABLET (FP) PO PRN (06:24)
[2021-07-30] MEDS: PRENATAL VITAMINS W/ FOLIC ACID TABLET (FP) PO SCH (10:23)
[2021-07-30] MEDS: diazePAM 5 MG TABLET PO PRN ×2 (10:23→19:06)
[2021-07-30] MEDS: ARTIFICIAL TEARS (POLYVINYL ALCOHOL) OPTH DROPS OU SCH ×2 (10:27→22:22)
[2021-07-30] MEDS: BISMUTH SUBSALICYLATE 524 MG/30 ML PO PRN ×2 (12:54→22:25)
[2021-07-30] MEDS: MELATONIN 5 MG TABLETS PO SCH (22:23)
[2021-07-30] MEDS: THIAMINE HCL 100 MG TABLET (FP) PO SCH (22:23)
[2021-07-30] MEDS: IBUPROFEN 400 MG TABLET (FP) PO PRN (22:25)
[2021-07-30] MEDS: METHOCARBAMOL 500 MG TABLET PO PRN (22:25)
[2021-07-31] MEDS: hydrOXYzine PAMOATE 25 MG CAPSULE (FP) PO SCH ×5 (06:10→22:07)
[2021-07-31] MEDS: ACETAMINOPHEN 325 MG TABLET (FP) PO PRN (06:11)
[2021-07-31] MEDS: diazePAM 5 MG TABLET PO SCH ×2 (06:11→17:33)
[2021-07-31] MEDS: PRENATAL VITAMINS W/ FOLIC ACID TABLET (FP) PO SCH (10:17)
[2021-07-31] MEDS: diazePAM 5 MG TABLET PO PRN (10:18)
[2021-07-31] MEDS: ARTIFICIAL TEARS (POLYVINYL ALCOHOL) OPTH DROPS OU SCH ×2 (10:59→22:06)
[2021-07-31] MEDS: METHOCARBAMOL 500 MG TABLET PO PRN (22:06)
[2021-07-31] MEDS: IBUPROFEN 400 MG TABLET (FP) PO PRN (22:06)
[2021-07-31] MEDS: THIAMINE HCL 100 MG TABLET (FP) PO SCH (22:07)
[2021-07-31] MEDS: MELATONIN 5 MG TABLETS PO SCH (22:07)
[2021-08-01] MEDS: hydrOXYzine PAMOATE 25 MG CAPSULE (FP) PO SCH ×2 (05:41→09:47)
[2021-08-01] MEDS ORDERED: diazePAM 5 MG TABLET PO ONE (06:00)
[2021-08-01 08:52] VITALS: BP 131/82; PULSE 100; TEMP 97.3
[2021-08-01] MEDS: ARTIFICIAL TEARS (POLYVINYL ALCOHOL) OPTH DROPS OU SCH (09:48)
[2021-08-01] MEDS: PRENATAL VITAMINS W/ FOLIC ACID TABLET (FP) PO SCH (09:48)
== END 2021-08-01 09:46 | disposition home or self-care (01) | DRG 775 ==
LOC: YASAS 13:52 → Y6N 15:52 → Y3N 16:28
PROVIDERS: ADMIT Allergy & Immunology; ATTEND Allergy & Immunology
PROC: HZ2ZZZZ Detoxification Services for Substance Abuse Treatment (ICD-10-PCS; principal; 2021-07-28)
DX: F10.230 Alcohol dependence with withdrawal, uncomplicated (principal); F17.210 Nicotine dependence, cigarettes, uncomplicated; I10 Essential (primary) hypertension; M19.90 Unspecified osteoarthritis, unspecified site; I42.6 Alcoholic cardiomyopathy; Z86.11 Personal history of tuberculosis; Z88.8 Allergy status to other drugs, medicaments and biological substances; Z86.19 Personal history of other infectious and parasitic diseases
CPT/HCPCS: 36415; 71046-TC-FY; 80053; 81025; 85027; 86780; C9803; U0003; U0005